=== PATIENT | male | born 1930 | race Caucasian/White ===

== ENCOUNTER 2016-06-14 10:28 | Emergency (ER) | payer MEDICARE, BC ==
--- NOTE | 2016-06-14 10:53 | ER Document Report ---
ED Medical Screen (RME) - General Stated Complaint: WEAKNESS Notes: Patient referred over by Dr. Tellez was positive DVT in the left leg behind his left knee. Referred over for initiation of treatment. I have greeted and performed a rapid initial assessment of this patient. A comprehensive ED assessment and evaluation of the patient, analysis of test results and completion of the medical decision making process will be conducted by additional ED providers. TRAVEL OUTSIDE OF THE [place] IN LAST 30 DAYS: No - Related Data Allergies/Adverse Reactions: amiodarone [Amiodarone] Allergy (Verified 05/11/16 16:42) aspirin [Aspirin] Allergy (Verified 05/11/16 16:42) Penicillins Allergy (Verified 05/11/16 16:42) Past Medical History - Past Medical History Cardiac Medical History: Reports: Hx Atrial Fibrillation, Hx Congestive Heart Failure, Hx Heart Attack, Hx Hypercholesterolemia Renal/ Medical History: Reports: Hx End Stage Renal Disease Past Surgical History: Reports: Hx Cardiac Surgery - pacer/defib, Hx Internal Defibrillator, Hx Orthopedic Surgery - neck, Hx Pacemaker - Immunizations Hx Diphtheria, Pertussis, Tetanus Vaccination: Yes Physical Exam - Vital signs Vitals: Temp Pulse Resp BP Pulse Ox 97.5 F 70 18 128/68 H 100 06/14/16 10:51 06/14/16 10:51 06/14/16 10:51 06/14/16 10:51 06/14/16 10:51 Course - Vital Signs Vital signs: Temp Pulse Resp BP Pulse Ox 97.5 F 70 18 128/68 H 100 06/14/16 10:51 06/14/16 10:51 06/14/16 10:51 06/14/16 10:51 06/14/16 10:51
[2016-06-14 11:15] LABS: ABSOLUTE BASOPHILS # (AUTO) 0.1 10^3/uL (0.0-0.2); ABSOLUTE EOSINOPHILS # (AUTO) 0.2 10^3/uL (0.0-0.6); ABSOLUTE LYMPHOCYTES (AUTO) 0.6 10^3/uL (0.5-4.7); ABSOLUTE MONOCYTES (AUTO) 0.6 10^3/uL (0.1-1.4); ABSOLUTE NEUT (AUTO) 8.4 10^3/uL (1.7-8.2); BASOPHILS % (AUTO) 0.7 % (0-2); EOSINOPHILS % (AUTO) 2.2 % (0-6); HEMATOCRIT 34.2 % (37.9-51.0); HEMOGLOBIN 11.5 g/dL (13.5-17.0); HGB HCT DIFFERENCE 0.3; LYMPHOCYTES % (AUTO) 6.5 % (13-45); MEAN CORPUSCULAR HGB CONC 33.6 g/dL (32.0-36.0); MEAN CORPUSCULAR VOLUME 98 fl (80-97); MONOCYTES % (AUTO) 5.8 % (3-13); RED BLOOD COUNT 3.48 10^6/uL (4.35-5.55); RED CELL DISTRIBUTION WIDTH 16.4 % (11.5-14.0); SEGMENTED NEUTROPHILS % (AUTO) 84.8 % (42-78); WHITE BLOOD COUNT 9.8 10^3/uL (4.0-10.5)
[2016-06-14 11:22] LABS: PROTHROMBIN TIME 13.1 SEC (11.4-15.4)
[2016-06-14 11:23] LABS: PARTIAL THROMBOPLASTIN TIME 23.9 SEC (23.5-35.8)
[2016-06-14 11:33] LABS: ALANINE AMINOTRANSFERASE 30 U/L (21-72); ALBUMIN 4.3 g/dL (3.5-5.0); ALKALINE PHOSPHATASE 97 U/L (38-126); ANION GAP 15 (5-19); ASPARTATE AMINO TRANSFERASE 26 U/L (17-59); BILIRUBIN,TOTAL 0.8 mg/dL (0.2-1.3); BLOOD UREA NITROGEN 72 mg/dL (7-20); CALCIUM 9.9 mg/dL (8.4-10.2); CARBON DIOXIDE 24 mmol/L (22-30); CHLORIDE 104 mmol/L (98-107); CREATININE RESULT 2.46 mg/dL (0.52-1.25); GLUCOSE 92 mg/dL (75-110); POTASSIUM 4.2 mmol/L (3.6-5.0); SODIUM 142.7 mmol/L (137-145); TOTAL PROTEIN 6.7 g/dL (6.3-8.2)
[2016-06-14] MEDS ORDERED: HEPARIN SOD (PORCINE) 1,000 UNIT/ML 10 ML VIAL IV ONE (13:02)
[2016-06-14] MEDS ORDERED: HEPARIN SODIUM,PORCINE/D5W 250 ML IV PRN (13:02)
[2016-06-14] MEDS ORDERED: HEPARIN SOD (PORCINE) 1,000 UNIT/ML 10 ML VIAL IV PRN (13:02)
[2016-06-14] MEDS ORDERED: APIXABAN 2.5 MG TABLET PO ONE (13:33)
--- NOTE | 2016-06-14 13:37 | ER Document Report ---
ED General - General Chief Complaint: Abnormal Lab Results Stated Complaint: WEAKNESS TRAVEL OUTSIDE OF THE [place] IN LAST 30 DAYS: No - HPI Patient complains to provider of: left popliteal DVT Notes: Patient is a resident of [facility] was at the hospital having arterial studies performed when into no finding of a left popliteal DVT was found. Patient was to the ER for further evaluation. According to family members patient has no history of bleeding no history of ulcers or upper GI bleed. States he is not on any blood thinning medications right now but is a resident of the local [facility] at [facility]. Patient otherwise has no complaints - Related Data Allergies/Adverse Reactions: amiodarone [Amiodarone] Allergy (Verified 06/14/16 10:56) aspirin [Aspirin] Allergy (Verified 06/14/16 10:56) Penicillins Allergy (Verified 06/14/16 10:56) Past Medical History - Social History Smoking Status: Never Smoker Chew tobacco use (# tins/day): No Frequency of alcohol use: None Drug Abuse: None Family History: Reviewed & Not Pertinent Patient has suicidal ideation: No Patient has homicidal ideation: No - Past Medical History Cardiac Medical History: Reports: Hx Atrial Fibrillation, Hx Congestive Heart Failure, Hx Heart Attack, Hx Hypercholesterolemia Renal/ Medical History: Reports: Hx End Stage Renal Disease. Denies: Hx Peritoneal Dialysis Past Surgical History: Reports: Hx Cardiac Surgery - pacer/defib, Hx Internal Defibrillator, Hx Orthopedic Surgery - neck, Hx Pacemaker - Immunizations Hx Diphtheria, Pertussis, Tetanus Vaccination: Yes Review of Systems - Review of Systems Constitutional: Other - DVT home outpatient study EENT: No symptoms reported Cardiovascular: No symptoms reported Respiratory: No symptoms reported Gastrointestinal: No symptoms reported Genitourinary: No symptoms reported Male Genitourinary: No symptoms reported Musculoskeletal: No symptoms reported Skin: No symptoms reported Hematologic/Lymphatic: No symptoms reported Neurological/Psychological: No symptoms reported -: Yes All other systems reviewed and negative Physical Exam - Vital signs Vitals: Temp Pulse Resp BP Pulse Ox 97.5 F 70 18 128/68 H 100 06/14/16 10:51 06/14/16 10:51 06/14/16 10:51 06/14/16 10:51 06/14/16 10:51 Interpretation: Normal - General General appearance: Appears well, Alert - HEENT Head: Normocephalic, Atraumatic Eyes: Normal Pupils: PERRL - Respiratory Respiratory status: No respiratory distress Chest status: Nontender Breath sounds: Normal Chest palpation: Normal - Cardiovascular Rhythm: Regular Heart sounds: Normal auscultation Murmur: No - Abdominal Inspection: Normal Distension: No distension Bowel sounds: Normal Tenderness: Nontender Organomegaly: No organomegaly - Back Back: Normal, Nontender - Extremities General upper extremity: Normal inspection, Nontender, Normal color, Normal ROM , Normal temperature General lower extremity: Normal inspection, Nontender, Normal color, Normal ROM , Normal temperature, Normal weight bearing. No: Mariza's sign - Neurological Neuro grossly intact: Yes Cognition: Normal Orientation: AAOx4 Henderson Coma Scale Eye Opening: Spontaneous Henderson Coma Scale Verbal: Oriented Erich Coma Scale Motor: Obeys Commands Henderson Coma Scale Total: 15 Speech: Normal Motor strength normal: LUE, RUE, LLE, RLE Sensory: Normal - Psychological Associated symptoms: Normal affect, Normal mood - Skin Skin Temperature: Warm Skin Moisture: Dry Skin Color: Normal Course - Re-evaluation Re-evalutation: 06/14/16 16:05 Discussion the patient's case with nephrology and hematology oncology senior controller Dr. Dickens and Dr. Boucher. Patient will be started on liquids 2.5 mg twice a day and follow-up with Dr. Boucher. - Vital Signs Vital signs: Temp Pulse Resp BP Pulse Ox 97.4 F 70 16 124/61 100 06/14/16 13:48 06/14/16 13:48 06/14/16 13:48 06/14/16 13:48 06/14/16 13:48 - Laboratory Result Diagrams: 06/14/16 11:00 06/14/16 11:00 Laboratory results interpreted by me: 06/14/16 06/14/16 11:00 11:00 RBC 3.48 L Hgb 11.5 L Hct 34.2 L MCV 98 H RDW 16.4 H Plt Count 148 L Seg Neutrophils % 84.8 H Lymphocytes % 6.5 L Absolute Neutrophils 8.4 H BUN 72 H Creatinine 2.46 H Est GFR ( Amer) 30 L Est GFR (Non-Af Amer) 25 L Discharge - Discharge Clinical Impression: Left leg DVT Qualifiers: Affected thrombotic vein of extremity: popliteal Chronicity: acute Qualified Code(s): I82.432 - Acute embolism and thrombosis of left popliteal vein Condition: Good Disposition: HOME, SELF-CARE Instructions: DVT Outpatient Treatment ([facility]) Additional Instructions: The patient was seen a day and diagnosed with a left DVT. After discussion with hematology and nephrology patient will be placed on eliquis 2.5 mg twice a day. Please continue to monitor please create a safe environment to avoid falls due to patient being on blood thinning medication. Please follow-up with dough mixer helper as stated. Return to the ER symptoms worsen Prescriptions: Apixaban [Eliquis 2.5 mg Tablet] 2.5 mg PO BID 14 Days Referrals: ALTHEA ROSALES MD [Primary Care Provider] - Follow up as needed SANJEEV BOUCHER MD [ACTIVE STAFF] - Follow up in 3-5 days
[2016-06-14 13:49] VITALS: BP 124/61
== END 2016-06-14 13:48 | disposition home or self-care (01) ==
LOC: ER 10:28
DX: I82.432 Acute embolism and thrombosis of left popliteal vein (principal); R53.1 Weakness; I48.91 Unspecified atrial fibrillation; N18.6 End stage renal disease; E78.00 Pure hypercholesterolemia, unspecified; I50.9 Heart failure, unspecified; Z88.0 Allergy status to penicillin; Z88.6 Allergy status to analgesic agent; Z95.810 Presence of automatic (implantable) cardiac defibrillator; I25.2 Old myocardial infarction
CPT/HCPCS: 99285; 36415; 85025; 85610; 85730; 80053; 93925 ×2; A9270

== ENCOUNTER → 2016-06-14 | Outpatient (CLI) | payer MEDICARE ==
--- NOTE | 2016-06-14 11:48 | XCELERA REPORT ---
[address] [address] Lower Extremity Arterial Evaluation Name: OSMAR SANDS Age: 86 yrs Gender: Male : 1930 Patient Status: Outpatient Patient Location: Study Date: 06/14/2016 09:18 AM Procedure: A color flow and duplex scan of the lower extremity arteries was performed bilaterally with velocity and waveform anaylsis. Reason For Study: PAD, ULCER Ordering Physician: DOMINGA MONROE Performed By: Adrian Pink Measurements and Calculations Right Left FITNESS TEACHER PSV 65.0 57.0 cm/sec Prox PFA PSV -65.0 -75.1 cm/sec Dist SFA PSV -112.5 -132.8 cm/sec Prox Pop A PSV 63.3 18.5 cm/sec Dist COOPER PSV 55.5 cm/sec Dist FLIGHT/TRANSPORT NURSE PSV -47.5 -21.3 cm/sec Dist Jean A PSV -35.6 cm/sec Meño Pedis PSV 58.0 38.7 cm/sec Right Side Arterial Evaluation Normal velocity, waveform and triphasic flow are present, in the Common Femoral artery to the Popliteal artery. Monophasic with minimal attenuation to the infrageniculate vessels. The ankle-brachial index not done. 50-99 % stenosis is noted at the infrageniculate level. Left Side Arterial Evaluation Incidental, significant finding of eucholic with venous distension, partial flow in the Popliteal vein. Normal velocity, waveform and triphasic flow are present, in the Common Femoral artery. Occlusion in the Femoral artery. Monophasic reconstitution , with moderate attenuation to the infrageniculate vessels. The ankle-brachial index not done. Occlusion is noted at the Femoral level. Critical Findings Called in to Dr Bright in the ER at about 1000. Interpretation Summary Severe hemodynamically significant lesions in the bilateral lower extremities, on duplex imaging, at rest. Worse on the left. Incidental finding of DVT, limited to the left Popliteal vein. Seems to be subacute. : DOMINGA MONROE > Dominga Monroe
== END ==
LOC: SP 08:54
PROVIDERS: ATTEND Surgery
DX: I87.2 Venous insufficiency (chronic) (peripheral) (principal)
CPT/HCPCS: 93925

== ENCOUNTER → 2016-06-21 | Outpatient (CLI) | payer MEDICARE, BC | LOC: OD 13:58 | PROVIDERS: ATTEND Surgery | DX: M79.672 Pain in left foot (principal); M85.872 Other specified disorders of bone density and structure, left ankle and foot ==

== ENCOUNTER 2016-06-24 12:47 | Inpatient (IN) | payer MEDICARE, BC ==
--- NOTE | 2016-06-24 14:32 | ER Document Report ---
ED General - General Time seen by provider: 15:43 Mode of Arrival: Medic Information source: Relative - son TRAVEL OUTSIDE OF THE [place] IN LAST 30 DAYS: No - HPI Onset: Other - see HPI note Associated symptoms: Weakness <LISA VACA - Last Filed: 06/24/16 20:21> <MOHITADAMA MIMS - Last Filed: 06/24/16 23:08> - General Chief Complaint: Weakness Stated Complaint: WEAKNESS Notes: Patient is a 86-year-old male presented MRSA department with complaints of generalized weakness and inability to ambulate. Patient's baseline gait is using a cane or walker. Patient's son was called while at work and told that the patient was slumped over in his chair and could not sit up, get up, or walk. Patient was visited earlier this week by family members and was at his baseline gait. Patient has inability to use his arms bilaterally that he is able to sit himself up and get up and walk. Patient was recently placed on a blood thinner due to a recently found blood, behind his left knee. Patient resides in a [facility]. Patient's PCP is Dr. Monreal and patient's forensic artist is Dr. Frederick. (LISA VACA) - Related Data Allergies/Adverse Reactions: amiodarone [Amiodarone] Allergy (Verified 06/14/16 10:56) aspirin [Aspirin] Allergy (Verified 06/14/16 10:56) Penicillins Allergy (Verified 06/14/16 10:56) Home Medications: Current Home Medications Allopurinol [Zyloprim 100 mg Tablet] 100 mg PO DAILY 06/24/16 [History] Apixaban [Eliquis 2.5 mg Tablet] 2.5 mg PO BID 06/24/16 [History] Ascorbic Acid [Vitamin C 500 mg Tablet] 500 mg PO DAILY 06/24/16 [History] Donepezil HCl 5 mg PO DAILY 06/24/16 [History] Metolazone 2.5 mg PO ASDIR PRN 06/24/16 [History] Past Medical History - General Information source: Relative - son, [facility] Records - Social History Smoking Status: Former Smoker Cigarette use (# per day): No Chew tobacco use (# tins/day): No Frequency of alcohol use: None Drug Abuse: None Family History: None - Past Medical History Cardiac Medical History: Reports: Hx Atrial Fibrillation, Hx Congestive Heart Failure, Hx Heart Attack, Hx Hypercholesterolemia, Hx Hypertension Renal/ Medical History: Reports: Hx End Stage Renal Disease GI Medical History: Reports: Hx Gastroesophageal Reflux Disease Past Surgical History: Reports: Hx Cardiac Surgery - pacer/defib, Hx Internal Defibrillator, Hx Orthopedic Surgery - neck, Hx Pacemaker - Immunizations Hx Diphtheria, Pertussis, Tetanus Vaccination: Yes <LISA VACA - Last Filed: 06/24/16 20:21> Review of Systems - Review of Systems Constitutional: No symptoms reported EENT: No symptoms reported Cardiovascular: No symptoms reported Respiratory: No symptoms reported Gastrointestinal: No symptoms reported Genitourinary: No symptoms reported Male Genitourinary: No symptoms reported Musculoskeletal: No symptoms reported Skin: No symptoms reported Hematologic/Lymphatic: No symptoms reported Neurological/Psychological: See HPI, Weakness, Gait changes -: Yes All other systems reviewed and negative <LISA VACA - Last Filed: 06/24/16 20:21> Physical Exam - Vital signs Interpretation: Normal - General General appearance: Appears well, Alert - HEENT Head: Normocephalic, Atraumatic Eyes: Normal Pupils: PERRL Mucous membranes: Moist - Respiratory Respiratory status: No respiratory distress Chest status: Nontender Breath sounds: Normal Chest palpation: Normal - Cardiovascular Rhythm: Regular Heart sounds: Normal auscultation Murmur: No - Abdominal Inspection: Normal Distension: No distension Bowel sounds: Normal Tenderness: Nontender Organomegaly: No organomegaly - Back Back: Other - truncal weakness - Extremities General upper extremity: Other - 0/5 strength of upper extremities bilaterally which is consistent with patient's baseline General lower extremity: Other - 5/5 strength of lower extremities bilaterally at the hips, knees, and ankles - Neurological Neuro grossly intact: Yes Cognition: Normal Orientation: AAOx4 Lincoln Coma Scale Eye Opening: Spontaneous Erich Coma Scale Verbal: Oriented Erich Coma Scale Motor: Obeys Commands Erich Coma Scale Total: 15 Speech: Normal - Psychological Associated symptoms: Normal affect, Normal mood - Skin Skin Temperature: Warm Skin Moisture: Dry <LISA VACA - Last Filed: 06/24/16 20:21> Course - Laboratory Result Diagrams: 06/24/16 13:20 06/24/16 13:20 - Consults Dr. Mcnally Time consulted: 17:21 Dr. Kirkpatrick Time consulted: 17:23 Consulted provider: will see as inpatient <LISA VACA - Last Filed: 06/24/16 20:21> - Laboratory Result Diagrams: 06/24/16 13:20 06/24/16 13:20 - Diagnostic Test Radiology reviewed: Reports reviewed - EKG Interpretation by Me EKG shows normal: Sinus rhythm Rate: Normal Rhythm: NSR <ADAMA DAS - Last Filed: 06/24/16 23:08> - Re-evaluation Re-evalutation: 06/24/16 Patient is an 86-year-old male who apparently was found slumped over today. When patient woke up, he is having a difficult time walking and sitting up which is unusual for him. Patient has paced rhythm on EKG. Elevation of CK, CK -MB. Trop wnl. Patient has a history of bilateral upper extremity weakness. Patient denies any complaints in the emergency department. Son states that it is unusual that the patient cannot sit up by himself. Of note, the patient strength in his lower extremities is 5 out of 5 at hips, knees, ankles and toes. Blood work within normal limits. Head CT within normal limits. It is concerning however that the patient has new truncal weakness. He will be referred to the hospital service for admission. Discussed with son who agrees with this plan. Annika at time of admission. (ADAMA DAS) - Vital Signs Vital signs: Temp Pulse Resp BP Pulse Ox 98.2 F 70 18 136/57 H 100 06/24/16 20:00 06/24/16 18:22 06/24/16 22:56 06/24/16 22:56 06/24/16 22:56 (LISA VACA) (ADAMA DAS) - Laboratory Laboratory results interpreted by me: 06/24/16 06/24/16 06/24/16 13:20 13:20 13:20 RBC 3.22 L Hgb 10.6 L Hct 31.5 L MCV 98 H RDW 16.8 H Plt Count 109 L Seg Neutrophils % 83.9 H Lymphocytes % 5.7 L Carbon Dioxide 20 L BUN 43 H Creatinine 2.41 H Est GFR ( Amer) 31 L Est GFR (Non-Af Amer) 26 L Iron TIBC Ferritin Creatine Kinase 481 H CK-MB (CK-2) 6.04 H Urine Blood 06/24/16 06/24/16 13:20 15:52 RBC Hgb Hct MCV RDW Plt Count Seg Neutrophils % Lymphocytes % Carbon Dioxide BUN Creatinine Est GFR ( Amer) Est GFR (Non-Af Amer) Iron 20 L TIBC 212 L Ferritin 680.00 H Creatine Kinase CK-MB (CK-2) Urine Blood MODERATE H (ADAMA DAS) - Consults Dr. Mcnally Reason for consultation: 06/24/16 17:[address] Mcnally for possible admission, states to call Dr. Kirkpatrick. ( LISA VACA) Dr. Kirkpatrick Reason for consultation: 06/24/16 17:[address] Kirkpatrick for possible admission, patient will be admitted. (LISA VACA) Discharge <LISA VACA - Last Filed: 06/24/16 20:21> - Discharge Admitting Provider: Cruzito Kirkpatrick Unit Admitted: Telemetry <ADAMA DAS - Last Filed: 06/24/16 23:08> - Discharge Clinical Impression: Weakness, Gait disturbance Condition: Stable Disposition: ADMITTED INPATIENT Scribe Attestation: 06/24/16 23:08 I personally performed the services described in the documentation, reviewed and edited the documentation which was dictated to the scribe in my presence, and it accurately records my words and actions. (ADAMA DAS) Scribe Documentation - Scribe Written by Scribe:: Lisa Vaca 06/24/16 18:10 acting as scribe for :: Yamile <LISA VACA - Last Filed: 06/24/16 20:21>
[2016-06-24 14:56] LABS: PROTHROMBIN TIME 14.3 SEC (11.4-15.4)
[2016-06-24 15:07] LABS: ABSOLUTE EOSINOPHILS # (AUTO) 0.1 10^3/uL (0.0-0.6); ABSOLUTE LYMPHOCYTES (AUTO) 0.5 10^3/uL (0.5-4.7); ABSOLUTE MONOCYTES (AUTO) 0.7 10^3/uL (0.1-1.4); ABSOLUTE NEUT (AUTO) 6.9 10^3/uL (1.7-8.2); BASOPHILS % (AUTO) 0.3 % (0-2); EOSINOPHILS % (AUTO) 1.2 % (0-6); HEMATOCRIT 31.5 % (37.9-51.0); HEMOGLOBIN 10.6 g/dL (13.5-17.0); HGB HCT DIFFERENCE 0.3; LYMPHOCYTES % (AUTO) 5.7 % (13-45); MONOCYTES % (AUTO) 8.9 % (3-13); RED CELL DISTRIBUTION WIDTH 16.8 % (11.5-14.0); SEGMENTED NEUTROPHILS % (AUTO) 83.9 % (42-78); WHITE BLOOD COUNT 8.3 10^3/uL (4.0-10.5)
[2016-06-24 15:10] LABS: RED BLOOD COUNT 3.22 10^6/uL (4.35-5.55)
[2016-06-24 15:11] LABS: MEAN CORPUSCULAR HEMOGLOBIN 32.8 pg (27.0-33.4); MEAN CORPUSCULAR HGB CONC 33.5 g/dL (32.0-36.0); MEAN CORPUSCULAR VOLUME 98 fl (80-97)
[2016-06-24 15:16] LABS: ALANINE AMINOTRANSFERASE 34 U/L (21-72); ALKALINE PHOSPHATASE 90 U/L (38-126); ANION GAP 14 (5-19); ASPARTATE AMINO TRANSFERASE 37 U/L (17-59); BILIRUBIN,TOTAL 0.8 mg/dL (0.2-1.3); BLOOD UREA NITROGEN 43 mg/dL (7-20); CALCIUM 9.6 mg/dL (8.4-10.2); CARBON DIOXIDE 20 mmol/L (22-30); CHLORIDE 106 mmol/L (98-107); CREATINE KINASE 481 U/L (55-170); CREATININE RESULT 2.41 mg/dL (0.52-1.25); GLUCOSE 110 mg/dL (75-110); POTASSIUM 4.4 mmol/L (3.6-5.0); SODIUM 139.6 mmol/L (137-145); TOTAL PROTEIN 6.5 g/dL (6.3-8.2)
[2016-06-24 15:26] LABS: CREATINE KINASE MB 6.04 ng/mL (<4.55)
[2016-06-24 15:31] LABS: TROPONIN I 0.073 ng/mL
[2016-06-24 15:52] LABS: VENOUS BLOOD BASE EXCESS -3.9 mmol/L; VENOUS BLOOD PCO2 37.6 mmHg (35-63); VENOUS BLOOD PH 7.37 (7.30-7.42)
[2016-06-24 16:16] LABS: APPEARANCE,URINE CLEAR; BILIRUBIN,URINE NEGATIVE (NEGATIVE); GLUCOSE, URINE NEGATIVE (NEGATIVE); KETONES,URINE NEGATIVE (NEGATIVE); LEUKOCYTE ESTERASE,URINE NEGATIVE (NEGATIVE); NITRITE,URINE NEGATIVE (NEGATIVE); PROTEIN,URINE NEGATIVE (NEGATIVE); URINE SPECIFIC GRAVITY 1.008; UROBILINOGEN,URINE NEGATIVE mg/dL (<2.0)
--- NOTE | 2016-06-24 17:12 | EKG REPORT ---
SEVERITY:- ABNORMAL ECG - VENTRICULAR-PACED RHYTHM : Confirmed by: Barrington Martinez MD 24-Jun-2016 17:11:15
[2016-06-24] MEDS ORDERED: DEXTROSE 5%-1/2 NORMAL SALINE 1,000 ML IV PRN (18:00)
[2016-06-24] MEDS ORDERED: ONDANSETRON HCL INJ/PF 4 MG/2 ML SDV IV PRN (18:00)
[2016-06-24] MEDS ORDERED: HYDRALAZINE HCL INJ/PF 20 MG/1 ML SDV IV PRN (18:04)
--- NOTE | 2016-06-24 18:17 | PDOC H&P ---
History of Present Illness Patient complains of: Weakness History of Present Illness: OSMAR SANDS is a 86 year old male with complex medical history detailed below presents to the emergency department after being found unresponsive at [facility] assisted living facility today. Patient has chronic bilateral upper extremity weakness since he was in his 20s, but has had significant worsening of his bilateral upper extremity weakness today as well as new bilateral lower extremity weakness. In review of patient's past medical history as noted that he was diagnosed with a left popliteal DVT on 06/14/2016. He was started on Eliquis 2.5 mg twice daily at that time. He denies headache, neck pain, back pain. Medications listed below have not been verified at the time of this documentation. 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 Endocrine Medical History: Reports: Hypothyroidism Renal/ Medical History: Reports: Chronic Kidney Disease - Stage IV GI Medical History: Reports: Gastroesophageal Reflux Disease Past Surgical History Past Surgical History: Reports: Internal Defibrillator, Orthopedic Surgery - C- spine surgery 10 years ago [facility], Pacemaker Social History Information Source: Patient Lives with: Care Home Smoking Status: Former Smoker - Quit in Frequency of Alcohol Use: None Hx Recreational Drug Use: No Hx Prescription Drug Abuse: No - Advance Directive Resuscitation Status: Full Code Family History Family History: CAD - Father age 43 Parental Family History Reviewed: Yes Children Family History Reviewed: Yes Sibling(s) Family History Reviewed.: Yes Medication/Allergy Home Medications: Ascorbic Acid [Vitamin C 500 mg Tablet] 500 mg PO DAILY 10/08/15 Carvedilol 3.125 mg PO BID 10/08/15 Ferrous Sulfate [Feosol 325 mg Tablet] 325 mg PO BID 10/08/15 Finasteride 5 mg PO DAILY 10/08/15 Furosemide [Lasix 40 mg Tablet] 40 mg PO DAILY 10/08/15 Furosemide [Lasix 80 mg Tablet] 80 mg PO QAM 10/08/15 Levothyroxine Sodium [Synthroid 50 Mcg Tablet] 50 mcg PO QAM 10/08/15 Melatonin/Pyridoxine [Melatonin 3 Mg Tablet] 1 each PO QHS 10/08/15 Metolazone 2.5 mg PO DAILY #30 tablet 10/08/15 Metolazone 5 mg PO DAILY 10/08/15 [place]-3/Dha/Epa/Fish Oil [Fish Oil 1,000 mg Softgel] 1 each PO DAILY 10/08/15 Pantoprazole Sodium 40 mg PO DAILY 10/08/15 Potassium Chloride [Klor-Con 10] 30 meq PO DAILY 10/08/15 Pravastatin Sodium 20 mg PO DAILY 10/08/15 Prednisone 10 mg PO DAILY 10/08/15 Primidone [Mysoline] 100 mg PO QHS 10/08/15 Tamsulosin HCl 0.4 mg PO DAILY 10/08/15 Tolterodine Tartrate [Detrol] 1 mg PO BID 10/08/15 Vitamin B Complex 1 each PO DAILY 10/08/15 Cephalexin Monohydrate [Keflex 500 mg Capsule] 500 mg PO QID #40 capsule Doxycycline Monohydrate 100 mg PO BID #20 tablet 05/11/16 Apixaban [Eliquis 2.5 mg Tablet] 2.5 mg PO BID 14 Days 06/14/16 Allergies/Adverse Reactions: amiodarone [Amiodarone] Allergy (Verified 06/14/16 10:56) aspirin [Aspirin] Allergy (Verified 06/14/16 10:56) Penicillins Allergy (Verified 06/14/16 10:56) Review of Systems Constitutional: PRESENT: weakness. ABSENT: chills, fever(s), headache(s), weight gain, weight loss Eyes: ABSENT: visual disturbances Ears: ABSENT: hearing changes Cardiovascular: ABSENT: chest pain, dyspnea on exertion, edema, orthropnea, palpitations Respiratory: ABSENT: cough, hemoptysis Gastrointestinal: ABSENT: abdominal pain, constipation, diarrhea, hematemesis, hematochezia, nausea, vomiting Genitourinary: ABSENT: dysuria, hematuria Musculoskeletal: ABSENT: joint swelling Integumentary: ABSENT: rash, wounds Neurological: PRESENT: focal weakness - New-onset weakness in all 4 extremities. ABSENT: abnormal gait, abnormal speech, confusion, dizziness, syncope Psychiatric: ABSENT: anxiety, depression, homidical ideation, suicidal ideation Endocrine: ABSENT: cold intolerance, heat intolerance, polydipsia, polyuria Hematologic/Lymphatic: ABSENT: easy bleeding, easy bruising Physical Exam Vital Signs: Temp Pulse Resp BP Pulse Ox 98.5 F 72 22 H 148/55 H 98 06/24/16 12:58 06/24/16 15:00 06/24/16 16:30 06/24/16 16:30 06/24/16 16:30 PHYSICAL EXAM: GENERAL: Appears well, no acute distress HEENT: Normocephalic, no scleral icterus, conjunctiva clear, EOEM intact, PERRLA , moist mucous membranes NECK: trachea midline, no thyromegally RESPIRATORY: Clear to auscultation, no wheezes/rhonchi CARDIAC: Regular rate and rhythm, no murmur/jerome/rub. Pacemaker noted over right chest ABDOMEN: Soft, no distension, no tenderness, no guarding, normal bowel sounds, negative Frederick sign RECTAL: deferred : deferred EXTREMITIES: No edema, cyanosis, clubbing MUSCULOSKELETAL: No joint swelling or deformity VASCULAR: normal peripheral pulses NEUROLOGIC: Alert, oriented to person/place/time, normal speech, cranial nerves grossly intact, 1/5 strength in all 4 extremities with clonus noted in bilateral upper extremities, tactile sensation intact in all extremities SKIN: Ecchymosis noted over both arms PSYCHIATRIC: Normal mood, normal affect Results Laboratory Results: 06/24/16 13:20 06/24/16 13:20 06/24/16 06/24/16 06/24/16 13:20 13:20 15:33 WBC 8.3 RBC 3.22 L Hgb 10.6 L Hct 31.5 L MCV 98 H MCH 32.8 MCHC 33.5 RDW 16.8 H Plt Count 109 L Seg Neutrophils % 83.9 H Lymphocytes % 5.7 L Monocytes % 8.9 Eosinophils % 1.2 Basophils % 0.3 Absolute Neutrophils 6.9 Absolute Lymphocytes 0.5 Absolute Monocytes 0.7 Absolute Eosinophils 0.1 Absolute Basophils 0.0 VBG pH VBG pCO2 VBG HCO3 VBG Base Excess Sodium 139.6 Potassium 4.4 Chloride 106 Carbon Dioxide 20 L Anion Gap 14 BUN 43 H Creatinine 2.41 H Est GFR ( Amer) 31 L Est GFR (Non-Af Amer) 26 L Glucose 110 Lactic Acid 1.1 Calcium 9.6 Total Bilirubin 0.8 AST 37 ALT 34 Alkaline Phosphatase 90 Total Protein 6.5 Albumin 4.0 Urine Color Urine Appearance Urine pH Ur Specific [place] Urine Protein Urine Glucose (UA) Urine Ketones Urine Blood Urine Nitrite Ur Leukocyte Esterase Urine WBC (Auto) 06/24/16 06/24/16 15:33 15:52 WBC RBC Hgb Hct MCV MCH MCHC RDW Plt Count Seg Neutrophils % Lymphocytes % Monocytes % Eosinophils % Basophils % Absolute Neutrophils Absolute Lymphocytes Absolute Monocytes Absolute Eosinophils Absolute Basophils VBG pH 7.37 VBG pCO2 37.6 VBG HCO3 21.0 VBG Base Excess -3.9 Sodium Potassium Chloride Carbon Dioxide Anion Gap BUN Creatinine Est GFR ( Amer) Est GFR (Non-Af Amer) Glucose Lactic Acid Calcium Total Bilirubin AST ALT Alkaline Phosphatase Total Protein Albumin Urine Color YELLOW Urine Appearance CLEAR Urine pH 5.0 Ur Specific [place] 1.008 Urine Protein NEGATIVE Urine Glucose (UA) NEGATIVE Urine Ketones NEGATIVE Urine Blood MODERATE H Urine Nitrite NEGATIVE Ur Leukocyte Esterase NEGATIVE Urine WBC (Auto) 1 06/24/16 06/24/16 13:20 13:20 Creatine Kinase 481 H CK-MB (CK-2) 6.04 H Troponin I 0.073 Impressions: Head CT 06/24/16 00:00 IMPRESSION: Chronic ischemic changes. Chest X-Ray 06/24/16 14:28 IMPRESSION: NO ACUTE RADIOGRAPHIC FINDING IN THE CHEST. Assessment & Plan - Diagnosis (1) Weakness Is this a current diagnosis for this admission?: YesPlan: Patient has acute onset of weakness in all [address] shows no bleed. I would like to check CT scan of the cervical spine, thoracic spine, lumbar spine. My concern is that patient has recently been started on anticoagulation and now has acute onset weakness. I would like to rule out a bleed in the spine. Patient may need transfer to [facility] for further neurology evaluation. Unfortunately I will not able to obtain MRI of the brain or spine secondary to pacemaker. (2) Left leg DVT Is this a current diagnosis for this admission?: YesPlan: Hold Eliquis for now pending CT scan to exclude bleed in spine. (3) Chronic kidney disease, stage IV (severe) Is this a current diagnosis for this admission?: YesPlan: Kidney function around baseline. Patient is followed by Dr. Dickens of nephrology as an outpatient. (4) Thrombocytopenia Is this a current diagnosis for this admission?: YesPlan: Hold anticoagulation for now. (5) Anemia Is this a current diagnosis for this admission?: YesPlan: Check anemia panel. (6) Atrial fibrillation Is this a current diagnosis for this admission?: YesPlan: Patient is status post pacemaker. Verify home medications and resume. (7) Status post placement of cardiac pacemaker Is this a current diagnosis for this admission?: Yes (8) CHF (congestive heart failure) Qualifiers: Congestive heart failure type: unspecified congestive heart failure type Congestive heart failure chronicity: chronic Qualified Code(s): I50.9 - Heart failure, unspecified Is this a current diagnosis for this admission?: YesPlan: Verify home medications and resume. (9) Coronary artery disease Is this a current diagnosis for this admission?: Yes (10) Peripheral vascular disease Is this a current diagnosis for this admission?: Yes (11) Hypertension Is this a current diagnosis for this admission?: Yes (12) Hypothyroid Is this a current diagnosis for this admission?: YesPlan: Verify home dose of Synthroid and resume. - Time Time Spent: Greater than 70 Minutes
[2016-06-24 20:40] LABS: CREATINE KINASE MB 7.97 ng/mL (<4.55); TROPONIN I 0.115 ng/mL
--- NOTE | 2016-06-24 23:05 | Progress Note ---
Provider Note Provider Note: 06/24/2016: 10 PM, I went to the patient's bedside. Pleasant awake alert and cooperative. No obvious distress other than perhaps a bit fatigued, and slightly anxious. No agitation. Denies back pain. No difficulty voiding. No fecal incontinence. As noted in history and physical, chronic bilateral upper extremity weakness. Several week history of a mild cough. Patient states he received a flu vaccination this month. Patient discussed in detail at checkout rounds with admitting daytime hospitalist. History and physical reviewed. CT imaging reports of spine reviewed. Examination of right upper extremity reveals academic support specialist 5 over 5. Triceps 5 over 5. Scant bicep function. Examination of left upper extremity reveals academic support specialist 4 over 5. Triceps 4 over 5. Scant bicep function. Patient feels upper extremity strength and function now back to baseline. Light touch intact and symmetric at feet. Absent Babinski. Absent patellar reflex. Plantar flexion of feet 5 over 5 and symmetric. Dorsiflexion 5 over 5 on the right, very subtly weaker on the left. Flexion and extension of the thighs at the hips 5 over 5 and symmetric. Quite acceptable rectal tone. Follow clinically at this point in time. Thoracic Spine CT reports reveal interstitial and airspace opacities of lower lobes of lungs. With no fever, no evidence of left shift on CBC, and no chronic underlying lung disease, will forego antibiotics at this point in time. Blood cultures have been drawn. Sputum culture ordered. Incentive spirometry by respiratory therapy twice a day.
[2016-06-25 02:23] LABS: CREATINE KINASE MB 8.98 ng/mL (<4.55)
[2016-06-25 02:28] LABS: TROPONIN I 0.133 ng/mL
[2016-06-25] MEDS ORDERED: DEXTROSE 5%-1/2 NORMAL SALINE 1,000 ML IV PRN (04:34)
[2016-06-25] MEDS ORDERED: FUROSEMIDE 80 MG TABLET PO SCH (08:00)
[2016-06-25 08:10] LABS: HEMATOCRIT 27.3 % (37.9-51.0); HEMOGLOBIN 9.2 g/dL (13.5-17.0); HGB HCT DIFFERENCE 0.3; MEAN CORPUSCULAR HEMOGLOBIN 33.4 pg (27.0-33.4); MEAN CORPUSCULAR HGB CONC 33.7 g/dL (32.0-36.0); MEAN CORPUSCULAR VOLUME 99 fl (80-97); RED BLOOD COUNT 2.75 10^6/uL (4.35-5.55); WHITE BLOOD COUNT 4.7 10^3/uL (4.0-10.5)
[2016-06-25 08:22] LABS: ANION GAP 10 (5-19); BLOOD UREA NITROGEN 43 mg/dL (7-20); CALCIUM 8.7 mg/dL (8.4-10.2); CARBON DIOXIDE 19 mmol/L (22-30); CHLORIDE 109 mmol/L (98-107); CREATINE KINASE 1534 U/L (55-170); CREATININE RESULT 2.23 mg/dL (0.52-1.25); GLUCOSE 91 mg/dL (75-110); POTASSIUM 3.7 mmol/L (3.6-5.0); SODIUM 138.1 mmol/L (137-145)
--- NOTE | 2016-06-25 08:22 | EKG REPORT ---
SEVERITY:- ABNORMAL ECG - AFIB/FLUTTER AND VENTRICULAR-PACED RHYTHM : Confirmed by: Barrington Martinez MD 25-Jun-2016 08:21:12
[2016-06-25 08:32] LABS: CREATINE KINASE MB 5.52 ng/mL (<4.55); TROPONIN I 0.136 ng/mL
[2016-06-25] MEDS: LANSOPRAZOLE 30 MG TAB.RAP.DR PO SCH (08:48)
[2016-06-25] MEDS: FUROSEMIDE 40 MG TABLET PO SCH (08:49)
[2016-06-25] MEDS: LEVOTHYROXINE SODIUM 0.05 MG TABLET PO SCH (08:52)
[2016-06-25] MEDS ORDERED: (PENDING PHARMACY ID) (Vitamin B Complex [Vitamin B Complex] 1 EACH) PO SCH (10:00)
[2016-06-25] MEDS ORDERED: (PENDING PHARMACY ID) (Pravastatin Sodium [Pravastatin Sodium] 20 MG) PO SCH (10:00)
[2016-06-25] MEDS ORDERED: (PENDING PHARMACY ID) (Omega-3/Dha/Epa/Fish Oil [Fish Oil 1,000 Mg Softgel] 1 EACH) PO SCH (10:00)
[2016-06-25] MEDS: POTASSIUM CHLORIDE 10 MEQ TABLET.SA PO SCH (10:22)
[2016-06-25] MEDS: OMEGA-3 ACID ETHYL ESTERS 1 GM CAPSULE PO SCH (10:24)
[2016-06-25] MEDS: TAMSULOSIN HCL 0.4 MG CAP.SR.24H PO SCH (10:25)
[2016-06-25] MEDS: MULTIVIT-STRESS FORMULA/ZINC TABLET PO SCH (10:27)
[2016-06-25] MEDS: ALLOPURINOL 100 MG TABLET PO SCH (10:27)
[2016-06-25] MEDS: APIXABAN 2.5 MG TABLET PO SCH ×2 (10:29→18:30)
[2016-06-25] MEDS: TOLTERODINE TARTRATE 1 MG TABLET PO SCH ×2 (10:30→18:30)
[2016-06-25] MEDS: PREDNISONE 10 MG TABLET PO SCH (10:30)
[2016-06-25] MEDS: FINASTERIDE 5 MG TABLET PO SCH (10:30)
[2016-06-25] MEDS: FERROUS SULFATE 325 MG TABLET PO SCH ×2 (10:31→18:30)
[2016-06-25] MEDS: CARVEDILOL 3.125 MG TABLET PO SCH ×2 (10:50→22:20)
[2016-06-25] MEDS: ASCORBIC ACID 500 MG TABLET PO SCH (10:51)
[2016-06-25] MEDS: DONEPEZIL HCL 5 MG TABLET PO SCH (10:51)
[2016-06-25] MEDS: ACETAMINOPHEN 325 MG TABLET PO PRN ×2 (14:08→22:21)
--- NOTE | 2016-06-25 16:33 | PDOC PROGRESS REPORT ---
Subjective Progress Note for:: 06/25/16 Subjective:: Patient's weakness has improved significantly over the past 24 hours, however he is not back to baseline yet. Patient denies fever, chills, headache, chest pain, shortness of breath, abdominal pain, nausea, vomiting, diarrhea, constipation. Physical Exam Vital Signs: Temp Pulse Resp BP Pulse Ox 99.2 F 70 18 114/49 L 100 06/25/16 11:40 06/25/16 16:12 06/25/16 11:40 06/25/16 11:40 06/25/16 11:40 Intake & Output 06/24/16 06/25/16 06/26/16 06:59 06:59 06:59 Intake Total 0 Output Total 4 Balance -4 Weight 67.7 kg GENERAL: Appears well, no acute distress HEENT: Normocephalic, no scleral icterus, conjunctiva clear, EOEM intact, PERRLA , moist mucous membranes NECK: trachea midline, no thyromegally RESPIRATORY: Clear to auscultation, no wheezes/rhonchi CARDIAC: Regular rate and rhythm, no murmur/jerome/rub. Pacemaker noted over right chest ABDOMEN: Soft, no distension, no tenderness, no guarding, normal bowel sounds, negative Frederick sign EXTREMITIES: No edema, cyanosis, clubbing MUSCULOSKELETAL: Diffuse muscle wasting VASCULAR: normal peripheral pulses NEUROLOGIC: Alert, oriented to person/place/time, normal speech, cranial nerves grossly intact, 1/5 strength in bilateral upper extremities with clonus noted in bilateral upper extremities, 2/5 strength in bilateral lower extremities, tactile sensation intact in all extremities SKIN: Ecchymosis noted over both arms PSYCHIATRIC: Normal mood, normal affect Results Laboratory Results: 06/25/16 07:53 06/25/16 07:53 06/25/16 06/25/16 07:53 07:53 WBC 4.7 RBC 2.75 L Hgb 9.2 L Hct 27.3 L MCV 99 H MCH 33.4 MCHC 33.7 RDW 17.0 H Plt Count 91 L Sodium 138.1 Potassium 3.7 Chloride 109 H Carbon Dioxide 19 L Anion Gap 10 BUN 43 H Creatinine 2.23 H Est GFR ( Amer) 34 L Est GFR (Non-Af Amer) 28 L Glucose 91 Calcium 8.7 06/24/16 06/24/16 06/25/16 19:52 19:52 01:52 Creatine Kinase 1152 H 2079 H CK-MB (CK-2) 7.97 H Troponin I 0.115 06/25/16 06/25/16 06/25/16 01:52 07:53 07:53 Creatine Kinase 1534 H CK-MB (CK-2) 8.98 H 5.52 H Troponin I 0.133 0.136 Impressions: Cervical Spine CT 06/24/16 00:00 IMPRESSION: Stable. Head CT 06/24/16 00:00 IMPRESSION: Chronic ischemic changes. Lumbar Spine CT 06/24/16 00:00 IMPRESSION: 1. Endplate irregularity at the L1-L2 level probably due to advanced degenerative disc disease; cannot exclude chronic discitis. Consider laboratory and/or contrast MRI correlation as clinically warranted. 2. Mild thecal sac compression due to desiccated -protrusive disc. 3. Advanced atherosclerosis. Thoracic Spine CT 06/24/16 00:00 IMPRESSION: No acute CT findings of the thorax. [id number] disc desiccation and moderate exaggerated kyphotic curvature. Chest X-Ray 06/24/16 14:28 IMPRESSION: NO ACUTE RADIOGRAPHIC FINDING IN THE CHEST. Assessment & Plan - Diagnosis (1) Weakness Is this a current diagnosis for this admission?: YesPlan: Patient has been seen by Dr. Cardenas of neurology. 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 He feels that patient's elevated CPK level would be consistent with this scenario. He states that if family wants definitive diagnosis that patient could be transferred to tertiary care facility for muscle biopsy. That being said there is not much that would be done from a treatment standpoint other than rehabilitation. CT scan of the head, cervical spine, thoracic spine, lumbar spine was negative for bleed. Differential diagnosis also includes TIA/CVA. Unfortunately I will not able to obtain MRI of the brain or spine secondary to pacemaker. That being said even if patient had an acute stroke he is already on Eliquis and a statin. We are already planning rehabilitation. (2) Left leg DVT Is this a current diagnosis for this admission?: YesPlan: Resume Eliquis 2.5 mg twice daily until 09/13/2016. (3) Chronic kidney disease, stage IV (severe) Is this a current diagnosis for this admission?: YesPlan: Kidney function around baseline. Patient is followed by Dr. Dickens of nephrology as an outpatient. (4) Thrombocytopenia Is this a current diagnosis for this admission?: YesPlan: Monitor platelet count closely with reinstitution of Eliquis. (5) Anemia Is this a current diagnosis for this admission?: YesPlan: Iron deficiency. Continue iron supplementation. (6) Atrial fibrillation Is this a current diagnosis for this admission?: YesPlan: Patient is status post pacemaker. Continue Coreg. Patient is on Eliquis anyway for recently diagnosed DVT of the left lower extremity. (7) Status post placement of cardiac pacemaker Is this a current diagnosis for this admission?: Yes (8) CHF (congestive heart failure) Qualifiers: Congestive heart failure type: unspecified congestive heart failure type Congestive heart failure chronicity: chronic Qualified Code(s): I50.9 - Heart failure, unspecified Is this a current diagnosis for this admission?: YesPlan: Monitor closely with IV fluids for mild rhabdomyolysis. Continue Coreg, Lasix. Hold Zaroxolyn for now. (9) Coronary artery disease Is this a current diagnosis for this admission?: Yes (10) Peripheral vascular disease Is this a current diagnosis for this admission?: Yes (11) Hypertension Is this a current diagnosis for this admission?: Yes (12) Hypothyroid Is this a current diagnosis for this admission?: YesPlan: Continue Synthroid. (13) Rhabdomyolysis Qualifiers: Rhabdomyolysis type: non-traumatic Qualified Code(s): M62.82 - Rhabdomyolysis Is this a current diagnosis for this admission?: YesPlan: Continue IV fluids. Repeat CPK level in the morning. - Time Time Spent with patient: 35 or more minutes Anticipated discharge: Acute Rehab Within: when bed available
[2016-06-25] MEDS: DEXTROSE 5%-1/2 NORMAL SALINE 1,000 ML IV PRN (18:31)
[2016-06-25] MEDS ORDERED: (PENDING PHARMACY ID) (Melatonin/Pyridoxine [Melatonin 3 Mg Tablet] 1 EACH) PO SCH (22:00)
[2016-06-25] MEDS: ATORVASTATIN CALCIUM 10 MG TABLET PO SCH (22:20)
[2016-06-25] MEDS: PRIMIDONE 50 MG TABLET PO SCH (22:21)
[2016-06-26] MEDS: DEXTROSE 5%-1/2 NORMAL SALINE 1,000 ML IV PRN (06:31)
[2016-06-26 06:41] LABS: ABSOLUTE EOSINOPHILS # (AUTO) 0.2 10^3/uL (0.0-0.6); ABSOLUTE LYMPHOCYTES (AUTO) 0.6 10^3/uL (0.5-4.7); ABSOLUTE MONOCYTES (AUTO) 0.5 10^3/uL (0.1-1.4); BASOPHILS % (AUTO) 0.4 % (0-2); EOSINOPHILS % (AUTO) 3.6 % (0-6); HEMATOCRIT 26.3 % (37.9-51.0); HEMOGLOBIN 8.9 g/dL (13.5-17.0); HGB HCT DIFFERENCE 0.4; LYMPHOCYTES % (AUTO) 10.8 % (13-45); MEAN CORPUSCULAR HEMOGLOBIN 34.3 pg (27.0-33.4); MEAN CORPUSCULAR HGB CONC 33.9 g/dL (32.0-36.0); MEAN CORPUSCULAR VOLUME 101 fl (80-97); MONOCYTES % (AUTO) 9.1 % (3-13); RED CELL DISTRIBUTION WIDTH 16.6 % (11.5-14.0); SEGMENTED NEUTROPHILS % (AUTO) 76.1 % (42-78); WHITE BLOOD COUNT 5.2 10^3/uL (4.0-10.5)
[2016-06-26 06:52] LABS: ANION GAP 12 (5-19); BLOOD UREA NITROGEN 44 mg/dL (7-20); CALCIUM 8.4 mg/dL (8.4-10.2); CARBON DIOXIDE 17 mmol/L (22-30); CHLORIDE 107 mmol/L (98-107); CREATINE KINASE 1061 U/L (55-170); GLUCOSE 77 mg/dL (75-110); SODIUM 135.8 mmol/L (137-145)
[2016-06-26] MEDS: LANSOPRAZOLE 30 MG TAB.RAP.DR PO SCH (09:14)
[2016-06-26] MEDS: FUROSEMIDE 40 MG TABLET PO SCH (09:14)
[2016-06-26] MEDS: LEVOTHYROXINE SODIUM 0.05 MG TABLET PO SCH (09:15)
[2016-06-26] MEDS: ASCORBIC ACID 500 MG TABLET PO SCH (09:29)
[2016-06-26] MEDS: CARVEDILOL 3.125 MG TABLET PO SCH ×2 (09:29→21:30)
[2016-06-26] MEDS: POTASSIUM CHLORIDE 10 MEQ TABLET.SA PO SCH (09:29)
[2016-06-26] MEDS: ALLOPURINOL 100 MG TABLET PO SCH (09:29)
[2016-06-26] MEDS: OMEGA-3 ACID ETHYL ESTERS 1 GM CAPSULE PO SCH (09:30)
[2016-06-26] MEDS: FERROUS SULFATE 325 MG TABLET PO SCH ×2 (09:30→17:20)
[2016-06-26] MEDS: DONEPEZIL HCL 5 MG TABLET PO SCH (09:30)
[2016-06-26] MEDS: ACETAMINOPHEN 325 MG TABLET PO PRN ×2 (09:30→21:30)
[2016-06-26] MEDS: TAMSULOSIN HCL 0.4 MG CAP.SR.24H PO SCH (09:30)
[2016-06-26] MEDS: PREDNISONE 10 MG TABLET PO SCH (09:31)
[2016-06-26] MEDS: APIXABAN 2.5 MG TABLET PO SCH (09:31)
[2016-06-26] MEDS: MULTIVIT-STRESS FORMULA/ZINC TABLET PO SCH (09:31)
[2016-06-26] MEDS: FINASTERIDE 5 MG TABLET PO SCH (09:31)
[2016-06-26] MEDS: TOLTERODINE TARTRATE 1 MG TABLET PO SCH ×2 (09:31→17:20)
--- NOTE | 2016-06-26 12:54 | PDOC PROGRESS REPORT ---
Subjective Progress Note for:: 06/26/16 Subjective:: Patient's weakness has improved significantly since admission, however he is not back to baseline yet. His oral intake is very poor. Nursing reports low- grade temperature. Patient is having a cough on the room. Patient denies fever , chills, headache, chest pain, shortness of breath, abdominal pain, nausea, vomiting, diarrhea, constipation. Physical Exam Vital Signs: Temp Pulse Resp BP Pulse Ox 100.2 F 70 20 127/51 H 100 06/26/16 08:16 06/26/16 08:16 06/26/16 08:16 06/26/16 08:16 06/26/16 08:16 Intake & Output 06/25/16 06/26/16 06/27/16 06:59 06:59 06:59 Intake Total 1090 Balance 1090 Weight 70.3 kg GENERAL: Appears well, no acute distress HEENT: Normocephalic, no scleral icterus, conjunctiva clear, EOEM intact, PERRLA , moist mucous membranes NECK: trachea midline, no thyromegally RESPIRATORY: Clear to auscultation, no wheezes/rhonchi CARDIAC: Regular rate and rhythm, no murmur/jerome/rub. Pacemaker noted over right chest ABDOMEN: Soft, no distension, no tenderness, no guarding, normal bowel sounds, negative Frederick sign EXTREMITIES: No edema, cyanosis, clubbing MUSCULOSKELETAL: Diffuse muscle wasting VASCULAR: normal peripheral pulses NEUROLOGIC: Alert, oriented to person/place/time, normal speech, cranial nerves grossly intact, 1/5 strength in bilateral upper extremities with clonus noted in bilateral upper extremities, 2/5 strength in bilateral lower extremities, tactile sensation intact in all extremities SKIN: Ecchymosis noted over both arms PSYCHIATRIC: Normal mood, normal affect Results Laboratory Results: 06/26/16 05:43 06/26/16 05:43 06/26/16 06/26/16 05:43 05:43 WBC 5.2 RBC 2.60 L Hgb 8.9 L Hct 26.3 L MCV 101 H MCH 34.3 H MCHC 33.9 RDW 16.6 H Plt Count 80 L Seg Neutrophils % 76.1 Lymphocytes % 10.8 L Monocytes % 9.1 Eosinophils % 3.6 Basophils % 0.4 Absolute Neutrophils 4.0 Absolute Lymphocytes 0.6 Absolute Monocytes 0.5 Absolute Eosinophils 0.2 Absolute Basophils 0.0 Sodium 135.8 L Potassium 4.0 Chloride 107 Carbon Dioxide 17 L Anion Gap 12 BUN 44 H Creatinine 2.40 H Est GFR ( Amer) 31 L Est GFR (Non-Af Amer) 26 L Glucose 77 Calcium 8.4 06/26/16 06/26/16 05:43 05:43 Creatine Kinase 1061 H Troponin I 0.098 Impressions: Cervical Spine CT 06/24/16 00:00 IMPRESSION: Stable. Head CT 06/24/16 00:00 IMPRESSION: Chronic ischemic changes. Lumbar Spine CT 06/24/16 00:00 IMPRESSION: 1. Endplate irregularity at the L1-L2 level probably due to advanced degenerative disc disease; cannot exclude chronic discitis. Consider laboratory and/or contrast MRI correlation as clinically warranted. 2. Mild thecal sac compression due to desiccated -protrusive disc. 3. Advanced atherosclerosis. Thoracic Spine CT 06/24/16 00:00 IMPRESSION: No acute CT findings of the thorax. [id number] disc desiccation and moderate exaggerated kyphotic curvature. Chest X-Ray 06/24/16 14:28 IMPRESSION: NO ACUTE RADIOGRAPHIC FINDING IN THE CHEST. Assessment & Plan - Diagnosis (1) Weakness Is this a current diagnosis for this admission?: YesPlan: Patient has been seen by Dr. Cardenas of neurology. 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 He feels that patient's elevated CPK level would be consistent with this scenario. He states that if family wants definitive diagnosis that patient could be transferred to tertiary care facility for muscle biopsy. That being said there is not much that would be done from a treatment standpoint other than rehabilitation. CT scan of the head, cervical spine, thoracic spine, lumbar spine was negative for bleed. Differential diagnosis also includes TIA/CVA. Unfortunately I will not able to obtain MRI of the brain or spine secondary to pacemaker. That being said even if patient had an acute stroke he is already on Plavix and a statin. He has a documented aspirin allergy. We are already planning rehabilitation. (2) Left leg DVT Is this a current diagnosis for this admission?: YesPlan: Lower extremity Doppler at the end of May showed left popliteal DVT. Discontinue Eliquis secondary to worsening thrombocytopenia and chronic kidney disease stage IV. Patient not a candidate for low molecular weight heparin secondary to thrombocytopenia. Patient not a candidate for Arixtra secondary to creatinine clearance. Patient at high risk for bleeding on anticoagulation in general. I think given the patient's age and profound debility, the fact that the DVT was only in the popliteal fossa, and the patient is at high risk for bleeding complications with anticoagulation it would be best to abandon attempts at anticoagulation and placement patient on antiplatelet agent. He is allergic to aspirin. I will start Plavix 75 mg daily. (3) Cough Is this a current diagnosis for this admission?: YesPlan: Repeat chest x-ray as patient is having low-grade temperature. (4) Chronic kidney disease, stage IV (severe) Is this a current diagnosis for this admission?: YesPlan: Kidney function around baseline. Patient is followed by Dr. Dickens of nephrology as an outpatient. (5) Thrombocytopenia Is this a current diagnosis for this admission?: YesPlan: Discontinue anticoagulation. Continue to monitor platelet count closely with initiation of Plavix. (6) Anemia Is this a current diagnosis for this admission?: YesPlan: Iron deficiency. Continue iron supplementation. Decline in H&H likely hematoma delusional in nature. Continue to monitor closely. (7) Atrial fibrillation Is this a current diagnosis for this admission?: YesPlan: Patient is status post pacemaker. Continue Coreg. I will discontinue anticoagulation for multiple reasons mentioned above. (8) Status post placement of cardiac pacemaker Is this a current diagnosis for this admission?: Yes (9) CHF (congestive heart failure) Qualifiers: Congestive heart failure type: unspecified congestive heart failure type Congestive heart failure chronicity: chronic Qualified Code(s): I50.9 - Heart failure, unspecified Is this a current diagnosis for this admission?: YesPlan: Monitor closely with IV fluids for mild rhabdomyolysis. Continue Coreg, Lasix. Hold Zaroxolyn for now. (10) Coronary artery disease Is this a current diagnosis for this admission?: Yes (11) Peripheral vascular disease Is this a current diagnosis for this admission?: Yes (12) Hypertension Is this a current diagnosis for this admission?: Yes (13) Hypothyroid Is this a current diagnosis for this admission?: YesPlan: Continue Synthroid. (14) Rhabdomyolysis Qualifiers: Rhabdomyolysis type: non-traumatic Qualified Code(s): M62.82 - Rhabdomyolysis Is this a current diagnosis for this admission?: YesPlan: Continue IV fluids. Repeat CPK level in the morning. - Time Time Spent with patient: 35 or more minutes
[2016-06-26] MEDS: DEXTROSE 5%-NORMAL SALINE 1,000 ML IV PRN ×2 (13:08→21:30)
[2016-06-26] MEDS: PRIMIDONE 50 MG TABLET PO SCH (21:30)
[2016-06-26] MEDS: ATORVASTATIN CALCIUM 10 MG TABLET PO SCH (21:30)
[2016-06-27] MEDS ORDERED: GUAIFENESIN SYRP 200 MG/10 ML UDC PO PRN (04:15)
[2016-06-27 05:44] LABS: ANION GAP 10 (5-19); BLOOD UREA NITROGEN 44 mg/dL (7-20); CALCIUM 8.5 mg/dL (8.4-10.2); CARBON DIOXIDE 19 mmol/L (22-30); CHLORIDE 110 mmol/L (98-107); CREATINE KINASE 789 U/L (55-170); CREATININE RESULT 2.41 mg/dL (0.52-1.25); GLUCOSE 82 mg/dL (75-110); MAGNESIUM 1.8 mg/dL (1.6-2.3); POTASSIUM 3.8 mmol/L (3.6-5.0); SODIUM 139.4 mmol/L (137-145)
[2016-06-27 05:48] LABS: ABSOLUTE EOSINOPHILS # (AUTO) 0.2 10^3/uL (0.0-0.6); ABSOLUTE LYMPHOCYTES (AUTO) 0.7 10^3/uL (0.5-4.7); ABSOLUTE MONOCYTES (AUTO) 0.4 10^3/uL (0.1-1.4); ABSOLUTE NEUT (AUTO) 4.4 10^3/uL (1.7-8.2); BASOPHILS % (AUTO) 0.3 % (0-2); EOSINOPHILS % (AUTO) 3.2 % (0-6); HEMATOCRIT 27.9 % (37.9-51.0); HEMOGLOBIN 9.3 g/dL (13.5-17.0); LYMPHOCYTES % (AUTO) 11.6 % (13-45); MEAN CORPUSCULAR HGB CONC 33.5 g/dL (32.0-36.0); MEAN CORPUSCULAR VOLUME 99 fl (80-97); MONOCYTES % (AUTO) 7.9 % (3-13); RED BLOOD COUNT 2.82 10^6/uL (4.35-5.55); RED CELL DISTRIBUTION WIDTH 16.5 % (11.5-14.0); WHITE BLOOD COUNT 5.7 10^3/uL (4.0-10.5)
[2016-06-27] MEDS: LANSOPRAZOLE 30 MG TAB.RAP.DR PO SCH (07:42)
[2016-06-27] MEDS: LEVOTHYROXINE SODIUM 0.05 MG TABLET PO SCH (07:42)
[2016-06-27] MEDS: FUROSEMIDE 40 MG TABLET PO SCH (07:42)
[2016-06-27] MEDS ORDERED: ALBUTEROL SULFATE 0.083% NEB 2.5 MG/3 ML AMPUL NEB PRN (08:15)
[2016-06-27] MEDS ORDERED: POTASSI CL 20 MEQ/D5NS 1L 1,000 ML IV PRN ×2 (08:18→09:02)
--- NOTE | 2016-06-27 08:31 | PDOC PROGRESS REPORT ---
Subjective Progress Note for:: 06/27/16 Subjective:: Patient has worsening cough today as well as shortness of breath. Patient denies fever, chills, headache, new focal weakness, chest pain, abdominal pain, nausea, vomiting, diarrhea, constipation. Physical Exam Vital Signs: Temp Pulse Resp BP Pulse Ox 97.3 F 113 H 20 149/70 H 100 06/27/16 07:24 06/27/16 07:24 06/27/16 07:24 06/27/16 07:24 06/27/16 07:24 Intake & Output 06/26/16 06/27/16 06/28/16 06:59 06:59 06:59 Intake Total 1090 4008 Balance 1090 4008 Weight 70.3 kg 73.2 kg GENERAL: Appears well, no acute distress HEENT: Normocephalic, no scleral icterus, conjunctiva clear, EOEM intact, PERRLA , moist mucous membranes NECK: trachea midline, no thyromegally RESPIRATORY: Right anterior lung field rhonchi noted, mild tachypnea CARDIAC: Regular rate and rhythm, no murmur/jerome/rub. Pacemaker noted over right chest ABDOMEN: Soft, no distension, no tenderness, no guarding, normal bowel sounds, negative Frederick sign EXTREMITIES: No edema, cyanosis, clubbing MUSCULOSKELETAL: Diffuse muscle wasting VASCULAR: normal peripheral pulses NEUROLOGIC: Alert, oriented to person/place/time, normal speech, cranial nerves grossly intact, 1/5 strength in bilateral upper extremities with clonus noted in bilateral upper extremities, 2/5 strength in bilateral lower extremities, tactile sensation intact in all extremities SKIN: Ecchymosis noted over both arms PSYCHIATRIC: Normal mood, normal affect Results Laboratory Results: 06/27/16 04:51 06/27/16 04:51 06/27/16 06/27/16 04:51 04:51 WBC 5.7 RBC 2.82 L Hgb 9.3 L Hct 27.9 L MCV 99 H MCH 33.0 MCHC 33.5 RDW 16.5 H Plt Count 90 L Seg Neutrophils % 77.0 Lymphocytes % 11.6 L Monocytes % 7.9 Eosinophils % 3.2 Basophils % 0.3 Absolute Neutrophils 4.4 Absolute Lymphocytes 0.7 Absolute Monocytes 0.4 Absolute Eosinophils 0.2 Absolute Basophils 0.0 Sodium 139.4 Potassium 3.8 Chloride 110 H Carbon Dioxide 19 L Anion Gap 10 BUN 44 H Creatinine 2.41 H Est GFR ( Amer) 31 L Est GFR (Non-Af Amer) 26 L Glucose 82 Calcium 8.5 Magnesium 1.8 06/26/16 06/26/16 06/27/16 05:43 05:43 04:51 Creatine Kinase 1061 H 789 H Troponin I 0.098 Impressions: Cervical Spine CT 06/24/16 00:00 IMPRESSION: Stable. Head CT 06/24/16 00:00 IMPRESSION: Chronic ischemic changes. Lumbar Spine CT 06/24/16 00:00 IMPRESSION: 1. Endplate irregularity at the L1-L2 level probably due to advanced degenerative disc disease; cannot exclude chronic discitis. Consider laboratory and/or contrast MRI correlation as clinically warranted. 2. Mild thecal sac compression due to desiccated -protrusive disc. 3. Advanced atherosclerosis. Thoracic Spine CT 06/24/16 00:00 IMPRESSION: No acute CT findings of the thorax. [id number] disc desiccation and moderate exaggerated kyphotic curvature. Chest X-Ray 06/26/16 12:54 IMPRESSION: Ill-defined increased density in the right mid lung field which could represent a developing infiltrate or atelectatic changes. Remaining lung ferrell are free of active infiltrates. Other findings as noted above Assessment & Plan - Diagnosis (1) Right middle lobe pneumonia Qualifiers: Pneumonia type: due to unspecified organism Qualified Code(s): J18.1 - Lobar pneumonia, unspecified organism Is this a current diagnosis for this admission?: YesPlan: Likely bacterial. Given the fact that patient lives in assisted living facility and has been the hospital for the past few days this has a high probability of being a gram-negative organism. I will start IV aztreonam and oral doxycycline. Check blood culture and sputum culture. It's possible the patient may have had pneumonia on presentation that was not appreciated on initial chest x-ray secondary to dehydration on admission. This may have been contributing to weakness and altered mental status on admission. (2) Weakness Is this a current diagnosis for this admission?: YesPlan: Patient has been seen by Dr. Cardenas of neurology. 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 He feels that patient's elevated CPK level would be consistent with this scenario. He states that if family wants definitive diagnosis that patient could be transferred to tertiary care facility for muscle biopsy. That being said there is not much that would be done from a treatment standpoint other than rehabilitation. Pneumonia certainly contributing. CT scan of the head, cervical spine, thoracic spine, lumbar spine was negative for bleed. Differential diagnosis also includes TIA/CVA. Unfortunately I will not able to obtain MRI of the brain or spine secondary to pacemaker. That being said even if patient had an acute stroke he is already on Plavix and a statin. He has a documented aspirin allergy. We are already planning rehabilitation. (3) Left leg DVT Is this a current diagnosis for this admission?: YesPlan: Lower extremity Doppler at the end of May showed left popliteal DVT. Discontinued Eliquis secondary to worsening thrombocytopenia and chronic kidney disease stage IV. Patient not a candidate for low molecular weight heparin secondary to thrombocytopenia. Patient not a candidate for Arixtra secondary to creatinine clearance. Patient at high risk for bleeding on anticoagulation in general. I think given the patient's age and profound debility, the fact that the DVT was only in the popliteal fossa, and the patient is at high risk for bleeding complications with anticoagulation it would be best to abandon attempts at anticoagulation and placement patient on antiplatelet agent. He is allergic to aspirin. Continue Plavix 75 mg daily. (4) Chronic kidney disease, stage IV (severe) Is this a current diagnosis for this admission?: Yes (5) Thrombocytopenia Is this a current diagnosis for this admission?: YesPlan: Possibly secondary to side effect of anticoagulation plus ongoing infection. Discontinued anticoagulation. Continue to monitor platelet count closely with initiation of Plavix. (6) Anemia Is this a current diagnosis for this admission?: YesPlan: Iron deficiency. Continue iron supplementation. Decline in H&H likely hemodilution in nature. Continue to monitor closely. (7) Atrial fibrillation Is this a current diagnosis for this admission?: YesPlan: Patient is status post pacemaker. Continue Coreg. I will discontinue anticoagulation for multiple reasons mentioned above. 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 Continue Coreg, Lasix. Hold Zaroxolyn for now. (10) Coronary artery disease Is this a current diagnosis for this admission?: Yes (11) Peripheral vascular disease Is this a current diagnosis for this admission?: Yes (12) Hypertension Is this a current diagnosis for this admission?: Yes (13) Hypothyroid Is this a current diagnosis for this admission?: YesPlan: Continue Synthroid. (14) Rhabdomyolysis Qualifiers: Rhabdomyolysis type: non-traumatic Qualified Code(s): M62.82 - Rhabdomyolysis Is this a current diagnosis for this admission?: YesPlan: Continue gentle IV fluids. Repeat CPK level in the morning. - Time Time Spent with patient: 35 or more minutes - Inpatient Certification Medical Necessity: Need Close Monitoring Due to Risk of Patient Decompensation, Need For IV Fluids, Need for IV Antibiotics
[2016-06-27] MEDS ORDERED: FERROUS SULFATE 325 MG TABLET PO ONE (08:45)
[2016-06-27] MEDS ORDERED: FUROSEMIDE INJ/PF 40 MG/4 ML SDV ONE (08:58)
[2016-06-27] MEDS: DOXYCYCLINE HYCLATE 100 MG TABLET PO SCH ×2 (09:10→22:03)
[2016-06-27] MEDS: CARVEDILOL 3.125 MG TABLET PO SCH ×2 (09:10→22:03)
[2016-06-27] MEDS: TAMSULOSIN HCL 0.4 MG CAP.SR.24H PO SCH (09:11)
[2016-06-27] MEDS: DONEPEZIL HCL 5 MG TABLET PO SCH (09:11)
[2016-06-27] MEDS: TOLTERODINE TARTRATE 1 MG TABLET PO SCH ×2 (09:11→18:35)
[2016-06-27] MEDS: MULTIVIT-STRESS FORMULA/ZINC TABLET PO SCH (09:11)
[2016-06-27] MEDS: POTASSIUM CHLORIDE 10 MEQ TABLET.SA PO SCH (09:11)
[2016-06-27] MEDS: OMEGA-3 ACID ETHYL ESTERS 1 GM CAPSULE PO SCH (09:12)
[2016-06-27] MEDS: CLOPIDOGREL BISULFATE 75 MG TABLET PO SCH (09:12)
[2016-06-27] MEDS: FINASTERIDE 5 MG TABLET PO SCH (09:12)
[2016-06-27] MEDS: ASCORBIC ACID 500 MG TABLET PO SCH (09:12)
[2016-06-27] MEDS: PREDNISONE 10 MG TABLET PO SCH (09:12)
[2016-06-27] MEDS: ALLOPURINOL 100 MG TABLET PO SCH (09:12)
[2016-06-27] MEDS ORDERED: FUROSEMIDE INJ/PF 20 MG/2 ML SDV IV ONE (09:20)
[2016-06-27] MEDS: AZTREONAM 1.5 GM in DEXTROSE 5%-WATER 100 ML IV SCH ×2 (12:13→18:27)
[2016-06-27] MEDS: ALBUTEROL SULFATE 0.083% NEB 2.5 MG/3 ML AMPUL NEB SCH ×2 (13:54→20:51)
[2016-06-27] MEDS: METHYLPREDNISOLONE INJ 40 MG/1 ML SDV IV SCH ×2 (14:49→21:59)
[2016-06-27] MEDS: FERROUS SULFATE 325 MG TABLET PO SCH (18:35)
[2016-06-27] MEDS: FUROSEMIDE INJ/PF 20 MG/2 ML SDV IV SCH (21:59)
[2016-06-27] MEDS: PRIMIDONE 50 MG TABLET PO SCH (22:03)
[2016-06-27] MEDS: ATORVASTATIN CALCIUM 10 MG TABLET PO SCH (22:03)
[2016-06-28] MEDS: AZTREONAM 1.5 GM in DEXTROSE 5%-WATER 100 ML IV SCH ×3 (02:08→17:36)
[2016-06-28 04:07] LABS: ANION GAP 12 (5-19); BLOOD UREA NITROGEN 47 mg/dL (7-20); CALCIUM 8.5 mg/dL (8.4-10.2); CARBON DIOXIDE 16 mmol/L (22-30); CHLORIDE 113 mmol/L (98-107); CREATININE RESULT 2.37 mg/dL (0.52-1.25); GLUCOSE 127 mg/dL (75-110); POTASSIUM 4.4 mmol/L (3.6-5.0); SODIUM 140.8 mmol/L (137-145)
[2016-06-28 04:09] LABS: ABSOLUTE LYMPHOCYTES (AUTO) 0.3 10^3/uL (0.5-4.7); ABSOLUTE MONOCYTES (AUTO) 0.1 10^3/uL (0.1-1.4); ABSOLUTE NEUT (AUTO) 2.7 10^3/uL (1.7-8.2); BASOPHILS % (AUTO) 0.3 % (0-2); HEMATOCRIT 25.3 % (37.9-51.0); HEMOGLOBIN 8.7 g/dL (13.5-17.0); HGB HCT DIFFERENCE 0.8; LYMPHOCYTES % (AUTO) 8.5 % (13-45); MEAN CORPUSCULAR HEMOGLOBIN 32.8 pg (27.0-33.4); MEAN CORPUSCULAR HGB CONC 34.3 g/dL (32.0-36.0); MEAN CORPUSCULAR VOLUME 96 fl (80-97); RED BLOOD COUNT 2.64 10^6/uL (4.35-5.55); RED CELL DISTRIBUTION WIDTH 16.1 % (11.5-14.0); SEGMENTED NEUTROPHILS % (AUTO) 88.2 % (42-78)
[2016-06-28] MEDS: METHYLPREDNISOLONE INJ 40 MG/1 ML SDV IV SCH (05:05)
[2016-06-28] MEDS: FERROUS SULFATE 325 MG TABLET PO SCH ×2 (05:05→17:36)
[2016-06-28] MEDS: ALBUTEROL SULFATE 0.083% NEB 2.5 MG/3 ML AMPUL NEB SCH (08:01)
[2016-06-28] MEDS: LANSOPRAZOLE 30 MG TAB.RAP.DR PO SCH (08:04)
[2016-06-28] MEDS: LEVOTHYROXINE SODIUM 0.05 MG TABLET PO SCH (08:04)
[2016-06-28] MEDS: TOLTERODINE TARTRATE 1 MG TABLET PO SCH ×2 (09:01→17:36)
[2016-06-28] MEDS: ALLOPURINOL 100 MG TABLET PO SCH (09:01)
[2016-06-28] MEDS: MULTIVIT-STRESS FORMULA/ZINC TABLET PO SCH (09:01)
[2016-06-28] MEDS: CARVEDILOL 3.125 MG TABLET PO SCH ×2 (09:02→21:36)
[2016-06-28] MEDS: OMEGA-3 ACID ETHYL ESTERS 1 GM CAPSULE PO SCH (09:02)
[2016-06-28] MEDS: DONEPEZIL HCL 5 MG TABLET PO SCH (09:02)
[2016-06-28] MEDS: FINASTERIDE 5 MG TABLET PO SCH (09:02)
[2016-06-28] MEDS: CLOPIDOGREL BISULFATE 75 MG TABLET PO SCH (09:02)
[2016-06-28] MEDS: ASCORBIC ACID 500 MG TABLET PO SCH (09:02)
[2016-06-28] MEDS: PREDNISONE 10 MG TABLET PO SCH (09:02)
[2016-06-28] MEDS: TAMSULOSIN HCL 0.4 MG CAP.SR.24H PO SCH (09:03)
[2016-06-28] MEDS: DOXYCYCLINE HYCLATE 100 MG TABLET PO SCH ×2 (09:03→21:37)
[2016-06-28] MEDS: POTASSIUM CHLORIDE 10 MEQ TABLET.SA PO SCH (09:03)
[2016-06-28] MEDS: FUROSEMIDE INJ/PF 20 MG/2 ML SDV IV SCH (09:03)
[2016-06-28] MEDS ORDERED: GUAIFENESIN 600 MG TABLET.SA PO ONE (12:00)
--- NOTE | 2016-06-28 13:29 | PDOC PROGRESS REPORT ---
Subjective Progress Note for:: 06/28/16 Subjective:: Patient shortness of breath has much improved today. Patient denies fever, chills, headache, new focal weakness, chest pain, shortness of breath, abdominal pain, nausea, vomiting, diarrhea, constipation. Physical Exam Vital Signs: Temp Pulse Resp BP Pulse Ox 97.6 F 69 24 H 106/52 L 100 06/28/16 11:21 06/28/16 11:21 06/28/16 11:21 06/28/16 11:21 06/28/16 11:21 Intake & Output 06/27/16 06/28/16 06/29/16 06:59 06:59 06:59 Intake Total 4008 1062 Output Total 1650 Balance 4008 -588 Weight 73.2 kg 74.8 kg GENERAL: Appears well, no acute distress HEENT: Normocephalic, no scleral icterus, conjunctiva clear, EOEM intact, PERRLA , moist mucous membranes NECK: trachea midline, no thyromegally RESPIRATORY: Bilateral anterior lung field rhonchi noted, mild tachypnea CARDIAC: Regular rate and rhythm, no murmur/jerome/rub. Pacemaker noted over right chest ABDOMEN: Soft, no distension, no tenderness, no guarding, normal bowel sounds, negative Frederick sign EXTREMITIES: No edema, cyanosis, clubbing MUSCULOSKELETAL: Diffuse muscle wasting VASCULAR: normal peripheral pulses NEUROLOGIC: Alert, oriented to person/place/time, normal speech, cranial nerves grossly intact, 1/5 strength in bilateral upper extremities with clonus noted in bilateral upper extremities, 2/5 strength in bilateral lower extremities, tactile sensation intact in all extremities SKIN: Ecchymosis noted over both arms PSYCHIATRIC: Normal mood, normal affect Results Laboratory Results: 06/28/16 03:47 06/28/16 03:47 06/28/16 06/28/16 03:47 03:47 WBC 3.0 L RBC 2.64 L Hgb 8.7 L Hct 25.3 L MCV 96 MCH 32.8 MCHC 34.3 RDW 16.1 H Plt Count 86 L Seg Neutrophils % 88.2 H Lymphocytes % 8.5 L Monocytes % 3.0 Eosinophils % 0.0 Basophils % 0.3 Absolute Neutrophils 2.7 Absolute Lymphocytes 0.3 L Absolute Monocytes 0.1 Absolute Eosinophils 0.0 Absolute Basophils 0.0 Sodium 140.8 Potassium 4.4 Chloride 113 H Carbon Dioxide 16 L Anion Gap 12 BUN 47 H Creatinine 2.37 H Est GFR ( Amer) 32 L Est GFR (Non-Af Amer) 26 L Glucose 127 H Calcium 8.5 06/26/16 06/26/16 06/27/16 05:43 05:43 04:51 Creatine Kinase 1061 H 789 H Troponin I 0.098 Impressions: Cervical Spine CT 06/24/16 00:00 IMPRESSION: Stable. Head CT 06/24/16 00:00 IMPRESSION: Chronic ischemic changes. Lumbar Spine CT 06/24/16 00:00 IMPRESSION: 1. Endplate irregularity at the L1-L2 level probably due to advanced degenerative disc disease; cannot exclude chronic discitis. Consider laboratory and/or contrast MRI correlation as clinically warranted. 2. Mild thecal sac compression due to desiccated -protrusive disc. 3. Advanced atherosclerosis. Thoracic Spine CT 06/24/16 00:00 IMPRESSION: No acute CT findings of the thorax. [id number] disc desiccation and moderate exaggerated kyphotic curvature. Chest X-Ray 06/28/16 06:00 IMPRESSION: Patchy airspace disease in the right base most consistent with atelectasis. There has been improvement aeration in the right midlung field since prior study. Assessment & Plan - Diagnosis (1) Right middle lobe pneumonia Qualifiers: Pneumonia type: due to unspecified organism Qualified Code(s): J18.1 - Lobar pneumonia, unspecified organism Is this a current diagnosis for this admission?: YesPlan: Likely bacterial. Given the fact that patient lives in assisted living facility and has been the hospital for the past few days this has a high probability of being a gram-negative organism. Continue IV aztreonam and oral doxycycline pending blood culture and sputum culture. It's possible the patient may have had pneumonia on presentation that was not appreciated on initial chest x-ray secondary to dehydration on admission. This may have been contributing to weakness and altered mental status on admission. (2) Weakness Is this a current diagnosis for this admission?: YesPlan: Patient has been seen by Dr. Cardenas of neurology. 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 He feels that patient's elevated CPK level would be consistent with this scenario. He states that if family wants definitive diagnosis that patient could be transferred to tertiary care facility for muscle biopsy. That being said there is not much that would be done from a treatment standpoint other than rehabilitation. Pneumonia certainly contributing. CT scan of the head, cervical spine, thoracic spine, lumbar spine was negative for bleed. Differential diagnosis also includes TIA/CVA. Unfortunately I will not able to obtain MRI of the brain or spine secondary to pacemaker. That being said even if patient had an acute stroke he is already on Plavix and a statin. He has a documented aspirin allergy. We are already planning rehabilitation. (3) Left leg DVT Is this a current diagnosis for this admission?: YesPlan: Lower extremity Doppler at the end of May showed left popliteal DVT. Discontinued Eliquis secondary to worsening thrombocytopenia and chronic kidney disease stage IV. Patient not a candidate for low molecular weight heparin secondary to thrombocytopenia. Patient not a candidate for Arixtra secondary to creatinine clearance. Patient at high risk for bleeding on anticoagulation in general. I think given the patient's age and profound debility, the fact that the DVT was only in the popliteal fossa, and the patient is at high risk for bleeding complications with anticoagulation it would be best to abandon attempts at anticoagulation and placement patient on antiplatelet agent. He is allergic to aspirin. Continue Plavix 75 mg daily. (4) Chronic kidney disease, stage IV (severe) Is this a current diagnosis for this admission?: YesPlan: Kidney function around baseline. Patient is followed by Dr. Dickens of nephrology as an outpatient. (5) Thrombocytopenia Is this a current diagnosis for this admission?: YesPlan: Possibly secondary to side effect of anticoagulation plus ongoing infection. Discontinued anticoagulation. Continue to monitor platelet count closely with initiation of Plavix. (6) Anemia Is this a current diagnosis for this admission?: YesPlan: Iron deficiency. Continue iron supplementation. Decline in H&H likely hemodilution in nature. Continue to monitor closely. (7) Atrial fibrillation Is this a current diagnosis for this admission?: YesPlan: Patient is status post pacemaker. Continue Coreg. I discontinued anticoagulation for multiple reasons mentioned above. 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 Continue Coreg, Lasix. Hold Zaroxolyn for now. (10) Coronary artery disease Is this a current diagnosis for this admission?: Yes (11) Peripheral vascular disease Is this a current diagnosis for this admission?: Yes (12) Hypertension Is this a current diagnosis for this admission?: Yes (13) Hypothyroid Is this a current diagnosis for this admission?: YesPlan: Continue Synthroid. (14) Rhabdomyolysis Qualifiers: Rhabdomyolysis type: non-traumatic Qualified Code(s): M62.82 - Rhabdomyolysis Is this a current diagnosis for this admission?: YesPlan: Continue gentle IV fluids. Repeat CPK level in the morning. - Time Time Spent with patient: 35 or more minutes Anticipated discharge: Acute Rehab Within: within 72 hours
[2016-06-28] MEDS: ACETAMINOPHEN 325 MG TABLET PO PRN (18:55)
[2016-06-28] MEDS: GUAIFENESIN 600 MG TABLET.SA PO SCH (21:36)
[2016-06-28] MEDS: PRIMIDONE 50 MG TABLET PO SCH (21:36)
[2016-06-28] MEDS: ATORVASTATIN CALCIUM 10 MG TABLET PO SCH (21:36)
[2016-06-29] MEDS: AZTREONAM 1.5 GM in DEXTROSE 5%-WATER 100 ML IV SCH ×3 (02:11→17:11)
[2016-06-29 04:10] LABS: ABSOLUTE LYMPHOCYTES (AUTO) 0.6 10^3/uL (0.5-4.7); ABSOLUTE MONOCYTES (AUTO) 0.6 10^3/uL (0.1-1.4); ABSOLUTE NEUT (AUTO) 4.8 10^3/uL (1.7-8.2); BASOPHILS % (AUTO) 0.2 % (0-2); EOSINOPHILS % (AUTO) 0.3 % (0-6); HEMATOCRIT 27.3 % (37.9-51.0); HEMOGLOBIN 9.1 g/dL (13.5-17.0); LYMPHOCYTES % (AUTO) 9.6 % (13-45); MEAN CORPUSCULAR HEMOGLOBIN 32.5 pg (27.0-33.4); MEAN CORPUSCULAR HGB CONC 33.4 g/dL (32.0-36.0); MEAN CORPUSCULAR VOLUME 97 fl (80-97); MONOCYTES % (AUTO) 9.5 % (3-13); RED BLOOD COUNT 2.82 10^6/uL (4.35-5.55); RED CELL DISTRIBUTION WIDTH 16.5 % (11.5-14.0); SEGMENTED NEUTROPHILS % (AUTO) 80.4 % (42-78)
[2016-06-29 04:18] LABS: ANION GAP 11 (5-19); BLOOD UREA NITROGEN 58 mg/dL (7-20); CALCIUM 8.7 mg/dL (8.4-10.2); CARBON DIOXIDE 18 mmol/L (22-30); CHLORIDE 113 mmol/L (98-107); CREATINE KINASE 169 U/L (55-170); CREATININE RESULT 2.43 mg/dL (0.52-1.25); GLUCOSE 87 mg/dL (75-110); MAGNESIUM 1.8 mg/dL (1.6-2.3); POTASSIUM 3.9 mmol/L (3.6-5.0); SODIUM 142.2 mmol/L (137-145)
[2016-06-29] MEDS: FERROUS SULFATE 325 MG TABLET PO SCH ×2 (05:49→17:11)
[2016-06-29] MEDS: MULTIVIT-STRESS FORMULA/ZINC TABLET PO SCH (09:14)
[2016-06-29] MEDS: FINASTERIDE 5 MG TABLET PO SCH (09:15)
[2016-06-29] MEDS: TOLTERODINE TARTRATE 1 MG TABLET PO SCH ×2 (09:15→17:11)
[2016-06-29] MEDS: TAMSULOSIN HCL 0.4 MG CAP.SR.24H PO SCH (09:15)
[2016-06-29] MEDS: ALLOPURINOL 100 MG TABLET PO SCH (09:16)
[2016-06-29] MEDS: CLOPIDOGREL BISULFATE 75 MG TABLET PO SCH (09:16)
[2016-06-29] MEDS: OMEGA-3 ACID ETHYL ESTERS 1 GM CAPSULE PO SCH (09:16)
[2016-06-29] MEDS: DONEPEZIL HCL 5 MG TABLET PO SCH (09:17)
[2016-06-29] MEDS: GUAIFENESIN 600 MG TABLET.SA PO SCH ×2 (09:17→21:36)
[2016-06-29] MEDS: DOXYCYCLINE HYCLATE 100 MG TABLET PO SCH ×2 (09:17→21:37)
[2016-06-29] MEDS: POTASSIUM CHLORIDE 10 MEQ TABLET.SA PO SCH (09:18)
[2016-06-29] MEDS: ASCORBIC ACID 500 MG TABLET PO SCH (09:18)
[2016-06-29] MEDS: PREDNISONE 20 MG TABLET PO SCH (09:19)
[2016-06-29] MEDS: CARVEDILOL 3.125 MG TABLET PO SCH ×2 (09:19→21:35)
[2016-06-29] MEDS: LANSOPRAZOLE 30 MG TAB.RAP.DR PO SCH (09:19)
[2016-06-29] MEDS: LEVOTHYROXINE SODIUM 0.05 MG TABLET PO SCH (09:19)
--- NOTE | 2016-06-29 11:14 | PDOC PROGRESS REPORT ---
Subjective Progress Note for:: 06/29/16 Subjective:: Patient reports that his breathing is doing better. Physical Exam Vital Signs: Temp Pulse Resp BP Pulse Ox 97.6 F 73 14 129/65 H 100 06/29/16 04:26 06/29/16 09:20 06/29/16 09:20 06/29/16 04:26 06/29/16 09:20 Intake & Output 06/28/16 06/29/16 06/30/16 06:59 06:59 06:59 Intake Total 1062 1490 Output Total 1650 1175 Balance -588 315 Weight 74.8 kg 75.3 kg General appearance: PRESENT: no acute distress Eye exam: PRESENT: conjunctiva pink. ABSENT: scleral icterus Ear exam: PRESENT: normal external ear exam Mouth exam: PRESENT: moist, tongue midline Neck exam: ABSENT: carotid bruit, JVD, lymphadenopathy, thyromegaly Respiratory exam: PRESENT: rhonchi - Coarse rhonchi bilaterally.. ABSENT: rales , wheezes Cardiovascular exam: PRESENT: RRR. ABSENT: diastolic murmur, rubs, systolic murmur GI/Abdominal exam: PRESENT: normal bowel sounds, soft. ABSENT: distended, guarding, mass, organolmegaly, rebound, tenderness Extremities exam: ABSENT: calf tenderness, clubbing, pedal edema Neurological exam: PRESENT: alert, awake, oriented to person, oriented to place , oriented to time, oriented to situation Psychiatric exam: PRESENT: appropriate affect Skin exam: PRESENT: dry, intact, warm. ABSENT: cyanosis, rash Results Laboratory Results: 06/29/16 03:53 06/29/16 03:53 06/29/16 06/29/16 03:53 03:53 WBC 6.0 RBC 2.82 L Hgb 9.1 L Hct 27.3 L MCV 97 MCH 32.5 MCHC 33.4 RDW 16.5 H Plt Count 87 L Seg Neutrophils % 80.4 H Lymphocytes % 9.6 L Monocytes % 9.5 Eosinophils % 0.3 Basophils % 0.2 Absolute Neutrophils 4.8 Absolute Lymphocytes 0.6 Absolute Monocytes 0.6 Absolute Eosinophils 0.0 Absolute Basophils 0.0 Sodium 142.2 Potassium 3.9 Chloride 113 H Carbon Dioxide 18 L Anion Gap 11 BUN 58 H Creatinine 2.43 H Est GFR ( Amer) 31 L Est GFR (Non-Af Amer) 25 L Glucose 87 Calcium 8.7 Magnesium 1.8 06/26/16 06/26/16 06/27/16 05:43 05:43 04:51 Creatine Kinase 1061 H 789 H Troponin I 0.098 06/29/16 03:53 Creatine Kinase 169 Troponin I Impressions: Cervical Spine CT 06/24/16 00:00 IMPRESSION: Stable. Head CT 06/24/16 00:00 IMPRESSION: Chronic ischemic changes. Lumbar Spine CT 06/24/16 00:00 IMPRESSION: 1. Endplate irregularity at the L1-L2 level probably due to advanced degenerative disc disease; cannot exclude chronic discitis. Consider laboratory and/or contrast MRI correlation as clinically warranted. 2. Mild thecal sac compression due to desiccated -protrusive disc. 3. Advanced atherosclerosis. Thoracic Spine CT 06/24/16 00:00 IMPRESSION: No acute CT findings of the thorax. [id number] disc desiccation and moderate exaggerated kyphotic curvature. Chest X-Ray 06/28/16 06:00 IMPRESSION: Patchy airspace disease in the right base most consistent with atelectasis. There has been improvement aeration in the right midlung field since prior study. Assessment & Plan - Diagnosis (1) Right middle lobe pneumonia Qualifiers: Pneumonia type: due to unspecified organism Qualified Code(s): J18.1 - Lobar pneumonia, unspecified organism Is this a current diagnosis for this admission?: YesPlan: Patient is on aztreonam and doxycycline. All cultures are negative up-to-date. Patient reports that he is feeling better from a pulmonary standpoint. (2) Rhabdomyolysis Qualifiers: Rhabdomyolysis type: non-traumatic Qualified Code(s): M62.82 - Rhabdomyolysis Is this a current diagnosis for this admission?: YesPlan: His creatine kinase has normalized. 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 (3) Anemia Is this a current diagnosis for this admission?: YesPlan: Hemoglobin has remained stable. (4) Atrial fibrillation Is this a current diagnosis for this admission?: YesPlan: Patient currently is in a regular rhythm. (5) CHF (congestive heart failure) Qualifiers: Congestive heart failure type: unspecified congestive heart failure type Congestive heart failure chronicity: chronic Qualified Code(s): I50.9 - Heart failure, unspecified Is this a current diagnosis for this admission?: YesPlan: Patient is euvolemic on exam. (6) Chronic kidney disease, stage IV (severe) Is this a current diagnosis for this admission?: YesPlan: Stable (7) Coronary artery disease Is this a current diagnosis for this admission?: YesPlan: Denies any chest pain. (8) Hypertension Is this a current diagnosis for this admission?: YesPlan: Blood pressure is under good control. (9) Hypothyroid Is this a current diagnosis for this admission?: YesPlan: Continue with Synthroid - Time Time Spent with patient: 25-34 minutes - Inpatient Certification Medical Necessity: Need for IV Antibiotics - Plan Summary Plan Summary: Patient will need to go to rehabilitation once he is stable for discharge from the hospital.
[2016-06-29] MEDS: PRIMIDONE 50 MG TABLET PO SCH (21:36)
[2016-06-29] MEDS: ATORVASTATIN CALCIUM 10 MG TABLET PO SCH (21:37)
[2016-06-30] MEDS: AZTREONAM 1.5 GM in DEXTROSE 5%-WATER 100 ML IV SCH ×3 (02:39→18:24)
[2016-06-30] MEDS: FERROUS SULFATE 325 MG TABLET PO SCH ×2 (05:20→18:24)
[2016-06-30] MEDS: CLOPIDOGREL BISULFATE 75 MG TABLET PO SCH (09:15)
[2016-06-30] MEDS: CARVEDILOL 3.125 MG TABLET PO SCH ×2 (09:15→21:42)
[2016-06-30] MEDS: MULTIVIT-STRESS FORMULA/ZINC TABLET PO SCH (09:15)
[2016-06-30] MEDS: TAMSULOSIN HCL 0.4 MG CAP.SR.24H PO SCH (09:16)
[2016-06-30] MEDS: POTASSIUM CHLORIDE 10 MEQ TABLET.SA PO SCH (09:17)
[2016-06-30] MEDS: DONEPEZIL HCL 5 MG TABLET PO SCH (09:18)
[2016-06-30] MEDS: FINASTERIDE 5 MG TABLET PO SCH (09:18)
[2016-06-30] MEDS: LEVOTHYROXINE SODIUM 0.05 MG TABLET PO SCH (09:18)
[2016-06-30] MEDS: ASCORBIC ACID 500 MG TABLET PO SCH (09:19)
[2016-06-30] MEDS: TOLTERODINE TARTRATE 1 MG TABLET PO SCH ×2 (09:19→18:24)
[2016-06-30] MEDS: LANSOPRAZOLE 30 MG TAB.RAP.DR PO SCH (09:19)
[2016-06-30] MEDS: ALLOPURINOL 100 MG TABLET PO SCH (09:20)
[2016-06-30] MEDS: DOXYCYCLINE HYCLATE 100 MG TABLET PO SCH ×2 (09:20→21:40)
[2016-06-30] MEDS: GUAIFENESIN 600 MG TABLET.SA PO SCH ×2 (09:20→21:40)
[2016-06-30] MEDS: PREDNISONE 20 MG TABLET PO SCH (09:20)
[2016-06-30] MEDS: OMEGA-3 ACID ETHYL ESTERS 1 GM CAPSULE PO SCH (09:21)
--- NOTE | 2016-06-30 10:53 | PDOC PROGRESS REPORT ---
Subjective Progress Note for:: 06/30/16 Subjective:: Complains of left upper quadrant pain. Denies any radiation. Denies any nausea vomiting. Physical Exam Vital Signs: Temp Pulse Resp BP Pulse Ox 97.5 F 80 18 135/78 H 100 06/30/16 07:34 06/30/16 08:42 06/30/16 08:42 06/30/16 07:34 06/30/16 08:42 Intake & Output 06/29/16 06/30/16 07/01/16 06:59 06:59 06:59 Intake Total 1490 913 Output Total 1175 1275 Balance 315 -362 Weight 75.3 kg 73.4 kg General appearance: PRESENT: no acute distress Eye exam: PRESENT: conjunctiva pink. ABSENT: scleral icterus Mouth exam: PRESENT: moist, tongue midline Neck exam: ABSENT: JVD Respiratory exam: PRESENT: rhonchi - Coarse rhonchi in the left base. ABSENT: rales, wheezes Cardiovascular exam: PRESENT: RRR. ABSENT: diastolic murmur, rubs, systolic murmur GI/Abdominal exam: PRESENT: normal bowel sounds, soft, tenderness - Mild left upper quadrant tenderness but no guarding or rebound.. ABSENT: distended, guarding, mass, organolmegaly, rebound Extremities exam: PRESENT: full ROM. ABSENT: calf tenderness, clubbing, pedal edema Neurological exam: PRESENT: alert, awake, oriented to person, oriented to place , oriented to time, oriented to situation Psychiatric exam: PRESENT: appropriate affect Skin exam: PRESENT: dry, intact, warm. ABSENT: cyanosis, rash Results Laboratory Results: 06/29/16 03:53 06/29/16 03:53 06/26/16 06/26/16 06/27/16 05:43 05:43 04:51 Creatine Kinase 1061 H 789 H Troponin I 0.098 06/29/16 03:53 Creatine Kinase 169 Troponin I Impressions: Cervical Spine CT 06/24/16 00:00 IMPRESSION: Stable. Head CT 06/24/16 00:00 IMPRESSION: Chronic ischemic changes. Lumbar Spine CT 06/24/16 00:00 IMPRESSION: 1. Endplate irregularity at the L1-L2 level probably due to advanced degenerative disc disease; cannot exclude chronic discitis. Consider laboratory and/or contrast MRI correlation as clinically warranted. 2. Mild thecal sac compression due to desiccated -protrusive disc. 3. Advanced atherosclerosis. Thoracic Spine CT 06/24/16 00:00 IMPRESSION: No acute CT findings of the thorax. [id number] disc desiccation and moderate exaggerated kyphotic curvature. Chest X-Ray 06/28/16 06:00 IMPRESSION: Patchy airspace disease in the right base most consistent with atelectasis. There has been improvement aeration in the right midlung field since prior study. Assessment & Plan - Diagnosis (1) Right middle lobe pneumonia Qualifiers: Pneumonia type: due to unspecified organism Qualified Code(s): J18.1 - Lobar pneumonia, unspecified organism Is this a current diagnosis for this admission?: YesPlan: Patient is on aztreonam and doxycycline. All cultures are negative up-to-date. Patient reports that he is feeling better from a pulmonary standpoint. (2) Rhabdomyolysis Qualifiers: Rhabdomyolysis type: non-traumatic Qualified Code(s): M62.82 - Rhabdomyolysis Is this a current diagnosis for this admission?: YesPlan: His creatine kinase has normalized. 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 (3) Anemia Is this a current diagnosis for this admission?: YesPlan: Hemoglobin has remained stable. (4) Atrial fibrillation Is this a current diagnosis for this admission?: YesPlan: Patient currently is in a regular rhythm. (5) CHF (congestive heart failure) Qualifiers: Congestive heart failure type: unspecified congestive heart failure type Congestive heart failure chronicity: chronic Qualified Code(s): I50.9 - Heart failure, unspecified Is this a current diagnosis for this admission?: YesPlan: Patient is euvolemic on exam. (6) Chronic kidney disease, stage IV (severe) Is this a current diagnosis for this admission?: YesPlan: Stable (7) Coronary artery disease Is this a current diagnosis for this admission?: YesPlan: Denies any chest pain. (8) Hypertension Is this a current diagnosis for this admission?: YesPlan: Blood pressure is under good control. (9) Hypothyroid Is this a current diagnosis for this admission?: YesPlan: Continue with Synthroid (10) Abdominal pain Is this a current diagnosis for this admission?: YesPlan: Patient has left upper quadrant abdominal pain but does have bowel sounds and is nontender. Will just observe for now. - Time Time Spent with patient: 25-34 minutes - Inpatient Certification Medical Necessity: Need for IV Antibiotics
[2016-06-30] MEDS: PRIMIDONE 50 MG TABLET PO SCH (21:41)
[2016-06-30] MEDS: ATORVASTATIN CALCIUM 10 MG TABLET PO SCH (21:42)
[2016-07-01] MEDS ORDERED: AZTREONAM INJ 1 GM VIAL ONE (01:39)
[2016-07-01] MEDS: AZTREONAM 1.5 GM in DEXTROSE 5%-WATER 100 ML IV SCH ×3 (02:50→17:40)
[2016-07-01] MEDS: FERROUS SULFATE 325 MG TABLET PO SCH ×2 (05:22→17:40)
[2016-07-01 05:24] LABS: ABSOLUTE LYMPHOCYTES (AUTO) 0.7 10^3/uL (0.5-4.7); ABSOLUTE MONOCYTES (AUTO) 0.6 10^3/uL (0.1-1.4); BASOPHILS % (AUTO) 0.2 % (0-2); EOSINOPHILS % (AUTO) 0.5 % (0-6); HEMATOCRIT 25.7 % (37.9-51.0); HEMOGLOBIN 8.5 g/dL (13.5-17.0); HGB HCT DIFFERENCE -0.2; LYMPHOCYTES % (AUTO) 9.5 % (13-45); MEAN CORPUSCULAR HEMOGLOBIN 32.4 pg (27.0-33.4); MEAN CORPUSCULAR HGB CONC 33.2 g/dL (32.0-36.0); MEAN CORPUSCULAR VOLUME 98 fl (80-97); MONOCYTES % (AUTO) 8.1 % (3-13); RED BLOOD COUNT 2.63 10^6/uL (4.35-5.55); RED CELL DISTRIBUTION WIDTH 16.4 % (11.5-14.0); SEGMENTED NEUTROPHILS % (AUTO) 81.7 % (42-78); WHITE BLOOD COUNT 7.3 10^3/uL (4.0-10.5)
[2016-07-01 05:38] LABS: ANION GAP 10 (5-19); BLOOD UREA NITROGEN 63 mg/dL (7-20); CALCIUM 9.4 mg/dL (8.4-10.2); CARBON DIOXIDE 17 mmol/L (22-30); CHLORIDE 118 mmol/L (98-107); CREATININE RESULT 1.93 mg/dL (0.52-1.25); GLUCOSE 80 mg/dL (75-110); POTASSIUM 4.6 mmol/L (3.6-5.0); SODIUM 144.9 mmol/L (137-145)
[2016-07-01] MEDS: LANSOPRAZOLE 30 MG TAB.RAP.DR PO SCH (08:42)
[2016-07-01] MEDS: LEVOTHYROXINE SODIUM 0.05 MG TABLET PO SCH (08:43)
--- NOTE | 2016-07-01 09:50 | PDOC TRANSFER SUMMARY ---
General - Admit/Disc Date/PCP Admission Date/Primary Care Provider: 06/25/16 14:31 Discharge Date: 07/01/16 - Discharge Diagnosis (1) Right middle lobe pneumonia Is this a current diagnosis for this admission?: YesSummary: Presumed to be a gram-negative organism however cultures have all been negative. Patient has completed 7 days of aztreonam and doxycycline. (2) Rhabdomyolysis Is this a current diagnosis for this admission?: YesSummary: This is secondary to his limb girdle disease in his acute illness. Has resolved. (3) Anemia Is this a current diagnosis for this admission?: YesSummary: Stable. Because of his anemia and poor functional status anticoagulation was stopped. (4) Atrial fibrillation Is this a current diagnosis for this admission?: YesSummary: The patient was previously on anticoagulation however because his renal failure , pancytopenia, generalized debility was felt that it was be better to not anticoagulate because of the risk and his DVT was just in the popliteal region. (5) CHF (congestive heart failure) Is this a current diagnosis for this admission?: YesSummary: Chronic congestive heart failure. (6) Chronic kidney disease, stage IV (severe) Is this a current diagnosis for this admission?: Yes (7) Coronary artery disease Is this a current diagnosis for this admission?: YesSummary: Patient was started on Plavix instead of Eliquis. (8) Hypertension Is this a current diagnosis for this admission?: Yes (9) Hypothyroid Is this a current diagnosis for this admission?: Yes (10) Abdominal pain Is this a current diagnosis for this admission?: YesSummary: Resolved. Uncertain etiology. - Additional Information Resuscitation Status: Do Not Resuscitate Discharge Diet: Cardiac Discharge Activity: Activity As Tolerated Home Medications: Carvedilol 3.125 mg PO BID 10/08/15 Ferrous Sulfate [Feosol 325 mg Tablet] 325 mg PO BID 10/08/15 Finasteride 5 mg PO DAILY 10/08/15 Furosemide [Lasix 80 mg Tablet] 40 mg PO QAM 10/08/15 Levothyroxine Sodium [Synthroid 0.05 mg Tablet] 50 mcg PO QAM 10/08/15 Melatonin/Pyridoxine [Melatonin 3 mg Tablet] 1 each PO QHS 10/08/15 [employer]-3/Dha/Epa/Fish Oil [Fish Oil 1,000 mg Softgel] 1 each PO DAILY 10/08/15 Pantoprazole Sodium 40 mg PO DAILY 10/08/15 Potassium Chloride [Klor-Con 10] 30 meq PO DAILY 10/08/15 Pravastatin Sodium 20 mg PO DAILY 10/08/15 Prednisone 10 mg PO DAILY 10/08/15 Primidone [Mysoline] 100 mg PO QHS 10/08/15 Tamsulosin HCl 0.4 mg PO DAILY 10/08/15 Tolterodine Tartrate [Detrol] 1 mg PO BID 10/08/15 Vitamin B Complex 1 each PO DAILY 10/08/15 Allopurinol [Zyloprim 100 mg Tablet] 100 mg PO DAILY 06/24/16 Ascorbic Acid [Vitamin C 500 mg Tablet] 500 mg PO DAILY 06/24/16 Donepezil HCl 5 mg PO DAILY 06/24/16 Metolazone 2.5 mg PO ASDIR PRN 06/24/16 Clopidogrel Bisulfate [Plavix 75 mg Tablet] 75 mg PO DAILY tablet 07/01/16 History of Present Illness Admission Date/PCP: 06/25/16 14:31 History of Present Illness: OSMAR SANDS is a 86 year old male with complex medical history detailed below presents to the emergency department after being found unresponsive at [facility] today. Patient has chronic bilateral upper extremity weakness since he was in his 20s, but has had significant worsening of his bilateral upper extremity weakness today as well as new bilateral lower extremity weakness. In review of patient's past medical history as noted that he was diagnosed with a left popliteal DVT on 06/14/2016. He was started on Eliquis 2.5 mg twice daily at that time. He denies headache, neck pain, back pain. Hospital Course Hospital Course: 86-year-old gentleman with a history of limb girdle muscular dystrophy who was a resident at the [facility] who was found down and brought to the emergency room. Patient was found to have a pneumonia as well as rhabdomyolysis. The patient's rhabdomyolysis has resolved. Patient's pneumonia was treated empirically with doxycycline and aztreonam. There is concerned this may be a gram-negative organism given the fact that he lives in an assisted living facility. Patient had cultures and all of those were negative. The patient did have resolution of his rhabdomyolysis. The patient did have thrombocytopenia and his Eliquis was stopped. He has a history of having a DVT in his popliteal vein. Because of his poor functional status and thrombocytopenia and chronic renal failure was felt that the patient was at too high of a risk for anticoagulation given the fact that he only has a popliteal DVT. Decision was made to switch from Eliquis to Plavix as an antiplatelet agent and not use any other anticoagulant. Patient has a history of congestive heart failure which was stable during this hospitalization. He also has the chronic renal failure stage IV and heart disease all of which have been stable during this hospitalization. The patient because of his weakness was felt to benefit from physical therapy the patient will be transferred to [facility] for physical therapy and occupational therapy. Physical Exam Vital Signs: Temp Pulse Resp BP Pulse Ox 97.8 F 75 13 130/69 H 94 07/01/16 04:32 07/01/16 06:39 07/01/16 04:32 07/01/16 04:32 07/01/16 09:01 Intake & Output 06/30/16 07/01/16 07/02/16 06:59 06:59 06:59 Intake Total 913 1655 Output Total 1275 900 Balance -362 755 Weight 73.4 kg 73.4 kg General appearance: PRESENT: no acute distress Head exam: PRESENT: atraumatic, normocephalic Eye exam: PRESENT: conjunctiva pink. ABSENT: scleral icterus Ear exam: PRESENT: normal external ear exam Mouth exam: PRESENT: moist, tongue midline Neck exam: ABSENT: JVD Respiratory exam: PRESENT: clear to auscultation radha. ABSENT: rales, rhonchi, wheezes Cardiovascular exam: PRESENT: RRR. ABSENT: diastolic murmur, rubs, systolic murmur Vascular exam: PRESENT: normal capillary refill GI/Abdominal exam: PRESENT: normal bowel sounds, soft. ABSENT: distended, guarding, mass, organolmegaly, rebound, tenderness Rectal exam: PRESENT: deferred Extremities exam: ABSENT: pedal edema Neurological exam: PRESENT: alert, awake, oriented to person, oriented to place , oriented to time, oriented to situation, motor sensory deficit, other - Patient has generalized weakness but no focal findings. Psychiatric exam: PRESENT: appropriate affect Skin exam: PRESENT: intact, warm Results Laboratory Results: 07/01/16 05:10 07/01/16 05:10 07/01/16 07/01/16 05:10 05:10 WBC 7.3 RBC 2.63 L Hgb 8.5 L Hct 25.7 L MCV 98 H MCH 32.4 MCHC 33.2 RDW 16.4 H Plt Count 111 L Seg Neutrophils % 81.7 H Lymphocytes % 9.5 L Monocytes % 8.1 Eosinophils % 0.5 Basophils % 0.2 Absolute Neutrophils 6.0 Absolute Lymphocytes 0.7 Absolute Monocytes 0.6 Absolute Eosinophils 0.0 Absolute Basophils 0.0 Sodium 144.9 Potassium 4.6 Chloride 118 H Carbon Dioxide 17 L Anion Gap 10 BUN 63 H Creatinine 1.93 H Est GFR ( Amer) 40 L Est GFR (Non-Af Amer) 33 L Glucose 80 Calcium 9.4 06/26/16 06/26/16 06/27/16 05:43 05:43 04:51 Creatine Kinase 1061 H 789 H Troponin I 0.098 06/29/16 03:53 Creatine Kinase 169 Troponin I Impressions: Cervical Spine CT 06/24/16 00:00 IMPRESSION: Stable. Head CT 06/24/16 00:00 IMPRESSION: Chronic ischemic changes. Lumbar Spine CT 06/24/16 00:00 IMPRESSION: 1. Endplate irregularity at the L1-L2 level probably due to advanced degenerative disc disease; cannot exclude chronic discitis. Consider laboratory and/or contrast MRI correlation as clinically warranted. 2. Mild thecal sac compression due to desiccated -protrusive disc. 3. Advanced atherosclerosis. Thoracic Spine CT 06/24/16 00:00 IMPRESSION: No acute CT findings of the thorax. [id number] disc desiccation and moderate exaggerated kyphotic curvature. Chest X-Ray 06/28/16 06:00 IMPRESSION: Patchy airspace disease in the right base most consistent with atelectasis. There has been improvement aeration in the right midlung field since prior study. Transfer Plan - Disposition Transfer Plan: Patient is to be transferred to [facility] for physical therapy and occupational therapy - Time Spent with Patient Time spent with patient: Greater than 30 Minutes Qualifiers PATEINT BEING DISCHARGED WITH ANY OF THE FOLLOWING DIAGNOSIS?: No Plan Discharge Plan: Patient is to be transferred to [facility]. Time Spent: Greater than 30 Minutes
[2016-07-01] MEDS: TOLTERODINE TARTRATE 1 MG TABLET PO SCH ×2 (10:08→17:40)
[2016-07-01] MEDS: POTASSIUM CHLORIDE 10 MEQ TABLET.SA PO SCH (10:08)
[2016-07-01] MEDS: GUAIFENESIN 600 MG TABLET.SA PO SCH (10:09)
[2016-07-01] MEDS: CLOPIDOGREL BISULFATE 75 MG TABLET PO SCH (10:09)
[2016-07-01] MEDS: DOXYCYCLINE HYCLATE 100 MG TABLET PO SCH (10:09)
[2016-07-01] MEDS: TAMSULOSIN HCL 0.4 MG CAP.SR.24H PO SCH (10:09)
[2016-07-01] MEDS: ASCORBIC ACID 500 MG TABLET PO SCH (10:09)
[2016-07-01] MEDS: CARVEDILOL 3.125 MG TABLET PO SCH (10:10)
[2016-07-01] MEDS: ALLOPURINOL 100 MG TABLET PO SCH (10:10)
[2016-07-01] MEDS: PREDNISONE 20 MG TABLET PO SCH (10:10)
[2016-07-01] MEDS: MULTIVIT-STRESS FORMULA/ZINC TABLET PO SCH (10:10)
[2016-07-01] MEDS: DONEPEZIL HCL 5 MG TABLET PO SCH (10:11)
[2016-07-01] MEDS: OMEGA-3 ACID ETHYL ESTERS 1 GM CAPSULE PO SCH (10:11)
[2016-07-01] MEDS: FINASTERIDE 5 MG TABLET PO SCH (10:11)
[2016-07-01 13:03] VITALS: BP 148/63
== END 2016-07-01 18:47 | DRG 194 ==
LOC: ER 12:47 → EH 18:00 → UNDOADMOB 18:28 → 4W 06-25 00:37 → OBSVTOIN 06-25 14:31 → 3N 06-27 10:20
PROVIDERS: ADMIT Family Medicine; ATTEND Family Medicine
DX: J18.1 Lobar pneumonia, unspecified organism (principal); M62.82 Rhabdomyolysis; N18.4 Chronic kidney disease, stage 4 (severe); I82.532 Chronic embolism and thrombosis of left popliteal vein; I48.2 Chronic atrial fibrillation; I50.9 Heart failure, unspecified; E78.5 Hyperlipidemia, unspecified; K21.9 Gastro-esophageal reflux disease without esophagitis; E03.9 Hypothyroidism, unspecified; I12.9 Hypertensive chronic kidney disease with stage 1 through stage 4 chronic kidney disease, or unspecified chronic kidney disease; D69.6 Thrombocytopenia, unspecified; I73.9 Peripheral vascular disease, unspecified; I25.2 Old myocardial infarction; Z79.01 Long term (current) use of anticoagulants; Z87.891 Personal history of nicotine dependence
CPT/HCPCS: 36415; 70450; 71010; 72125; 72128; 72131; 80048; 80051; 80053; 81001; 82550; 82553; 82565; 82607; 82728; 82746; 82803; 82962; 83540; 83550; 83605; 83735; 83880; 84466; 84484; 84520; 85025; 85027; 85045; 85610; 87040; 87086; 93005; 93010; 94640; 94667; 94668; 94799; 99285; G0378; G8978-GP; G8979-GP; G8987-GO; G8988-GO; J1940; J2920; J3480; J3490; J7512